=== PATIENT | female | born 1945 | race Caucasian/White ===

== ENCOUNTER 2016-12-18 01:30 | Day surgery (SDC) | payer MEDICARE ==
[~2016-12-18] VITALS: Ht 172.7 cm; Wt 118.8 kg
[~2016-12-18 01:30] MED LIST: BACL20TA PO; CALCIUM 600MG PO; CHOL200025 PO; GABA-500 PO; HYDR-3740 PO; OMEP20CA11 PO; SERT100T9 PO; SPIR25TA3 PO; WARF2.5T82 PO; WARF5TAB7 PO; [UNRECOGNIZED DRUG - OTHER] IM
[2016-12-18] MEDS ORDERED: fentaNYL-PF 50 mCg/mL 2 mL Inj ONE (01:31)
[2016-12-18] MEDS ORDERED: Propofol 10,000 mCg/mL 20 mL Inj ONE (01:31)
[2016-12-18 10:05] VITALS: BP 145/82; PULSE 70; RESP 16; O2SAT 97
--- NOTE | 2016-12-18 10:39 | PCM.HPANE ---
Patient Data Surgeon Admitting Provider: Attending Provider:Talia Kaminski MD Primary Care Physician:Mikayla De La Torre MD Other Provider:Garima Valencia Anesthesia Reason for Visit Pancreatic Cyst Ht/WT & BMI Height (Feet): 5 Height (Inches): 8 Weight (Kilograms): 118.84 Body Mass Index 39.00 Allergies Coded Allergies: Sulfa (Sulfonamide Antibiotics) (Verified Allergy, Severe, "itchy" "headache", 04/23/16) aspartame (Verified Allergy, Severe, 04/23/16) amitriptyline (Verified Adverse Reaction, Mild, GARCIA, vomiting, 12/03/16) oxybutynin (Verified Adverse Reaction, Mild, did not work, 12/03/16) Past Anesthesia History Anesthesia History: Positive for:: Anesthesia Reactions (SLOW TO WAKE UP), Denies:: Abnormal Airway, Difficult Intubation, Fam Anesthesia Reaction, Fam Malignant Hypertherm, Malignant Hyperthermia Diabetes History Hx Diabetes?: No MRSA MRSA: Yes (R BUTTOCKS/10+YRS AGO) Medications Blood Thinner: Coumadin Last Dose Blood Thinner: December 14, 2016 Reported Medications Warfarin Sodium 2.5 Mg Tablet7.5 Mg PO DIRECTED Ref 0 12/17/16 Warfarin Sodium 5 Mg Tablet5 Mg PO DIRECTED 30 Days Ref 0 12/17/16 Spironolactone 25 Mg Swdnrj97 Mg PO DAILY #30 TABLET Ref 0 12/17/16 Gabapentin 100 Mg [id number] Mg PO DAILY Ref 0 06/19/16 Cholecalciferol (Vitamin D3) (Vitamin D3)2,000 Unit Tablet2,000 Unit PO DAILY 05/12/15 Hydrocodone-Acetaminophen 10-325 mg 1 Each Tablet1-2 Tablet PO Q6H PRN For Pain Ref 0 05/12/15 Sertraline HCl (Sertraline)100 Mg Xrtqeg271 Mg PO DAILY 30 Days Ref 0 11/14/14 [Calcium 600MG] No Conflict Check1 Po Daily 10/21/11 [B 12 inj] No Conflict Check1,000 Mcg IM monthly Ref 0 05/10/09 Discontinued Reported Medications Omeprazole 20 Mg Capsule.dr20 Mg PO PRN Ref 0 04/23/16 Baclofen 20 Mg Lttytu13 Mg PO BID Ref 0 05/12/15 Warfarin Sodium 5 Mg Tablet5 Mg PO DAILY 30 Days Ref 0 5MG SAT, SUN, T,W,F; 2.5MG M, TH 05/15/15 History History of ENT Problems?: No HEENT History: Positive for:: Hearing Problem ([place] mild) Denies:: Abnormal Airway Difficult Intubation Dysphagia Denture Type: None Teeth Condition: Within Normal Limits Hx of Heart Problems?: Yes Cardiovascular History: Positive for:: Edema (pedal) Denies:: AICD Atrial Fibrillation Cardiac Surgery Chest Pain Congestive Heart Failure Heart Murmur Hypertension Irregular Heartbeat Pacemaker Thrombophlebitis Valvular Heart Disease Other Cardiac History: hx of blood clot in left leg Hx of Respiratory Problem?: No Respiratory History: Denies:: Asthma COPD Chest Surgery Cough Dyspnea Hemoptysis Pneumonia Tuberculosis Use of C-PAP Machine Hx Neurologic Problems?: Yes Neurological History: Positive for:: Multiple Sclerosis Denies:: Alzheimer's Disease CVA Dementia Dizziness Headaches Parkinson's Disease Seizures Hx of GI Problems?: Yes Hx of Problems?: Yes Genitourinary History: Positive for:: Urinary Tract Infection Denies:: HX of Hemodialysis Kidney Stones HX of Peritoneal Dialysis: No Female Hx: Denies:: Currently Endometriosis Pelvic Inflammatory Problems with Breasts? Hx Musculoskeletal Problems?: Yes Musculoskeletal History: Denies:: Back Injury Joint Replacement Musculoskeletal Trauma Hx of Psycho/Social Problems?: Yes Psycho Social History: Positive for:: Anxiety Hx Depression Denies:: Suicide Attempt Hx Surgeries?: Yes (L BR CA, CARPUL TUNNEL, CATARACTS, R KNEE ARTHROSCOPY) Hx Any Other Health Problems?: Yes Other History: Positive for:: Cancer (left breast cancer surgery 12 years ago) Hospitalization Denies:: Endocrine Disease Thyroid Disease History Blood Transfusions: Denies:: Blood Transfusions Hx Diabetes: No Hx Alcohol Use: NoHx Substance Use: No Smoking Status: Never Smoker Have You Smoked inLast 12 mo: No Stop/Bang Treated for Sleep Apnea?: Yes Do You Have a CPAP Machine?: Yes Risk Assessment Category Category 1A: Patient has history of documented sleep apnea, and HAS NOT received any narcotic, sedative or anesthesia administration during this stay. Category 1B: Patient has history of documented sleep apnea, and HAS received any narcotic , sedative or anesthesia administration during this stay Category 2: Patient has SUSPECTED Obstructive Sleep Apnea, and HAS received any narcotic , sedative or anesthesia administration during this stay. Category 3: Patient has SUSPECTED Obstructive Sleep Apnea and HAS NOT received narcotic, sedative or anesthesia administration during this stay. Category 4: Outpatient in Procedural Areas with known sleep apnea or who screen positive for High Risk via the STOP/BANG questionnaire. Exam Exam Vital Signs Vital Signs Date Time Temp Pulse Resp B/P Pulse Ox O2 Delivery O2 Flow Rate FiO2 12/18/16 10:05 70 16 145/82 97 Room Air General Appearance: Alert, Oriented X3, Cooperative, No Acute Distress HEENT/AIRWAY: MP 3 Lungs: Clear to Auscultation Heart: Exam Unremarkable Plan Impression Patient chart reviewed, patient interviewed and anesthestic plan with risks, benefits, and alternatives discussed, and informed consent obtained. ASA Physical Status: ASA3 Severe Disease Anesthetic Plan: MAC Bene/Risks/Altern/Consents: Yes HP Complete Prior to Induction: Yes Campbell Melvin MD December 18, 2016 10:39
[2016-12-18] MEDS: Lactated Ringer's 1,000 ML IV ONE ×2 (11:26→11:58)
[2016-12-18 12:03] VITALS: BP 157/98; PULSE 87; RESP 16; O2SAT 95
[2016-12-18 12:13] VITALS: BP 163/92; PULSE 82; RESP 16; O2SAT 96
--- NOTE | 2016-12-18 12:21 | PCM.ANEP1 ---
Post Anesthesia Phase 1 PACU Phase 1 Assessment Vital Signs Vital Signs Date Time Temp Pulse Resp B/P Pulse Ox O2 Delivery O2 Flow Rate FiO2 12/18/16 10:05 70 16 145/82 97 Room Air Anesthetic Administered: MAC Level of Alertness: Awake, talking MAHONEY's with Equal Strength: Yes Pain: No Nausea or Vomiting: No Cardiovascular Function and Hy: Yes Oxygen Delivery: Room Air Lungs: Clear to Auscultation Dermatome Level: Full Sensation Complications: No Campbell Melvin MD December 18, 2016 12:21
--- NOTE | 2016-12-18 16:09 | ENDO ---
[address] [address] ENDOSCOPY PROCEDURE PATIENT: LIZZETTE ZAMBRANO : 1945 MR#: [id number] ADMIT: 12/18/2016 JOB ID: [id number] DATE: 12/18/2016 PROCEDURE PERFORMED: EUS. INDICATIONS: A patient with a pancreatic cyst in the tail and body that were seen on prior MRI. The patient had undergone an EUS with FNA back in April of 2016. The lesion in the tail was aspirated and CEA was approximately 12,000 suggestive of mucinous cyst. The patient was then referred to [facility] and then subsequently a referral was placed for her to meet with a pancreaticobiliary surgeon at [facility] to discuss possible options for treatment. The patient, however, had other medical issues going on and, therefore, she never followed up with [facility]. It was recommended she have a repeat EUS done in six months to assess the cystic lesions. Please see anesthesia report for details regarding ASA classification, Mallampati score and medications. INSTRUMENT USED: [id number] linear echoendoscope. PROCEDURE DETAILS: After informed consent was obtained, the patient was brought into the GI suite, where she was placed on oxygen via nasal cannula and monitored with continuous pulse oximeter, telemetry and blood pressure monitoring. A time-out was performed. Then, she was placed in a left lateral decubitus position. A bite block was placed. Medications were then administered for sedation. The linear echo endoscope was then introduced through the bite block and advanced without difficulty to the second portion of the duodenum. Echo endoscopic findings demonstrated the followin. In the tail of the pancreas, we did appreciate what appeared to be a cyst measuring approximately 10 mm x 7.7 mm, almost the same size as prior to aspiration back in April. Again this did not appear to be communicating with the main pancreatic duct. There appeared to be a nodule in the cyst. FNA was not performed or aspiration performed as the cyst had been aspirated in the past. 2. In the body of the pancreas, there was a 3 mm x 3.4 mm well circumscribed hypoechoic lesion consistent with a cyst. The remainder of the pancreas otherwise appeared unremarkable. The pancreatic duct appeared to be normal in course and caliber. 3. The common bile duct appeared to be normal in course and caliber. The visualized portions of the left lobe were unremarkable. 4. Flow was seen in the portal vein, splenic vein and splenic artery. 5. The celiac axis appeared unremarkable. 6. Visualized portions of the spleen and left adrenal gland appeared unremarkable. IMPRESSION: 1. Cyst in the tail of the pancreas with mural nodule. 2. Small cyst in the pancreatic body. RECOMMENDATIONS: 1. Followup with [facility]. 2. Followup in GI clinic following her appointment with [facility]. COMPLICATIONS: None. ESTIMATED BLOOD LOSS: 0. MTDD
== END 2016-12-18 23:59 | disposition home or self-care (01) ==
LOC: END 01:30
PROVIDERS: ATTEND Internal Medicine Gastroenterology
DX: K86.2 Cyst of pancreas (principal); I82.409 Acute embolism and thrombosis of unspecified deep veins of unspecified lower extremity; D68.61 Antiphospholipid syndrome; I83.019 Varicose veins of right lower extremity with ulcer of unspecified site; F32.9 Major depressive disorder, single episode, unspecified; G35 Multiple sclerosis; G47.33 Obstructive sleep apnea (adult) (pediatric); M19.90 Unspecified osteoarthritis, unspecified site; G25.81 Restless legs syndrome; M48.06 Spinal stenosis, lumbar region; Z85.3 Personal history of malignant neoplasm of breast; Z79.01 Long term (current) use of anticoagulants; Z86.010 Personal history of colon polyps
CPT/HCPCS: 43237; J3010; J7120

== ENCOUNTER 2017-01-20 07:41 | Inpatient (IN) | payer MEDICARE ==
[2017-01-20] VITALS (13 sets, daily range): BP systolic 130–180; BP diastolic 69–103; PULSE 87–114; RESP 16–24; O2SAT 82–95
[~2017-01-20] VITALS: Ht 172.7 cm; Wt 130.0 kg
[~2017-01-20 07:41] MED LIST changes: -BACL20TA PO; -OMEP20CA11 PO
--- NOTE | 2017-01-20 07:41 | ED.REPORT ---
HPI-Trauma Minor / Fall Date of Service Jan 20, 2017 ED Provider: Renita Oreilly MD The pt is a 71 y/o female w/ a hx of multiple sclerosis, HTN, breast cancer, osteoarthritis, and depression presenting to the ED via EMS due to a ground level fall. She was trying to sit in her wheelchair which then slid out from under her. Her R leg was twisted to the side during the fall and is severely numb although the pt reports it always being numb due to her MS. The pain is primarily on the lateral side of her R leg just superior to her knee. The pt also experienced a bowel movement during her fall. She also has a bandage on her R leg due to it "weeping" but it is healing nicely , and it is being taken care of by Home Health. Nursing Notes Stated Complaint: GROUND LEVEL FALL Chief Complaint: RLE trauma Nursing Notes Reviewed: Yes Allergies: Coded Allergies: Sulfa (Sulfonamide Antibiotics) (Verified Allergy, Severe, "itchy" "headache", 01/20/17) aspartame (Verified Allergy, Severe, 04/23/16) amitriptyline (Verified Adverse Reaction, Mild, GARCIA, vomiting, 12/03/16) oxybutynin (Verified Adverse Reaction, Mild, did not work, 12/03/16) Scheduled ([B 12 inj]) 1,000 MCG IM monthly ([Calcium 600MG]) 1 PO DAILY Cholecalciferol (Vitamin D3) (Vitamin D3) 2,000 Unit Tablet 2,000 UNIT PO DAILY Gabapentin (Gabapentin) 100 Mg Capsule 100 MG PO DAILY Sertraline HCl (Sertraline) 100 Mg Tablet 150 MG PO DAILY Spironolactone (Spironolactone) 25 Mg Tablet 25 MG PO DAILY Warfarin Sodium (Warfarin Sodium) 5 Mg Tablet 5 MG PO DIRECTED Warfarin Sodium (Warfarin Sodium) 2.5 Mg Tablet 7.5 MG PO DIRECTED Scheduled PRN Hydrocodone-Acetaminophen 10-325 mg (Hydrocodone-Acetaminophen 10-325 mg) 1 Each Tablet 1-2 TABLET PO Q6H PRN PRN For Pain General Time Seen by MD: 07:41 Chief Complaint Fall Hx Obtained From: Patient Arrived By: Ambulance Onset Occurred: Just prior to arrival Symptom Duration: Since onset Recent Healthcare: No recent hospitalization, Recent doctor visit Similar Sx Previous: No Past Medical History Past Medical History Sleep apnea UTI Nocturia Arthritis Depression HTN Anxiety Left breast cancer Clotting problems (hypercoagulable) MRSA on R buttock Past Surgical History Left breast cancer surgery Carpal tunnel Cataracts R knee arthroscopy Smoking History Never Smoker Social History Other Social History: Good social support Ambulatory Status Wheelchair Review of Systems Musculoskeletal: Reports: Extremity pain (R leg ), Extremity swelling (Bilat lower extremities ) Complete sys rev & neg: except as marked. Physical Exam Initial Vital Signs Vital Signs (First) Date Time Temp Pulse Resp B/P Pulse Ox O2 Delivery O2 Flow Rate FiO2 01/20/17 07:48 36.9 87 16 150/90 93 Room Air Initial VS: Reviewed General/Constitutional: Awake, Alert Neck: Atraumatic, Supple, Full range of motion Head / Eyes: Atraumatic, Normocephalic ENT: Atraumatic, Airway patent Respiratory / Chest: Atraumatic, Breath sounds NL, Breath sounds = bilat, No respiratory distress, No rales, No rhonchi, No wheezing Cardiovascular: Heart rate NL, Regular rhythm, Heart sounds NL Abdomen: Atraumatic, Soft, Non-tender Upper Extremity / MS: Atraumatic, No deformity, Vascular intact Lower Extremity / Pelvis / MS: Vascular intact Right Thigh: Positive: Deformity femur distal Never neurologically intact due to MS Nicely healing wound on R anterior zarate Right Foot: Positive: Neuro deficit present (due to MS ) Left Foot: Positive: Neuro deficit present (due to MS ) Blood on L 3rd toe but no significant injury Toes are a deep purple Neurologic: Oriented X3, Speech NL Psychiatric: Affect NL, Mood NL Interpretation & Diagnostics Lab Results Interpretation Result Diagram: 01/20/17 0939 01/20/17 0939 Test 01/20/17 08:41 01/20/17 09:32 01/20/17 09:39 Hold Urine Received (Received) Urine Color Yellow (YELLOW) Urine Appearance Hazy (CLEAR,HAZY) Urine pH 5.5 (5.0-8.0) Urine Specific Bow 1.020 (1.003-1.035) Urine Protein Negativemg/dL (NEG,TRACE) Urine Glucose (UA) Negativemg/dL (NEGATIVE) Urine Ketones Negativemg/dL (NEGATIVE) Urine Occult Blood Small (NEGATIVE) Urine Nitrite Positive (NEGATIVE) Urine Bilirubin Negative (NEGATIVE) Urine Urobilinogen Normalmg/dL (NORMAL) Urine Leukocyte Esterase Negative (NEGATIVE) Urine RBC 0-2/hpf (0-2) Urine WBC 0-5/hpf (0-5) Urine Epithelial Cells Occasional/hpf (NONE-MOD) Urine Crystals None seen (NONE SEEN) Urine Bacteria Many/hpf (NONE-FEW) Urine Hyaline Casts None/lpf (NONE) Urine Granular Casts None seen (NONE SEEN) Urine Waxy Casts None seen (NONE SEEN) Urine Red Blood Cell Casts None seen (NONE SEEN) Urine White Blood Cell Casts None seen (NONE SEEN) Urine Mucus None seen (None Seen) Urine Trichomonas None seen (NONE SEEN) Urine Yeast None (NONE SEEN) Urinalysis Comment None Urine Culture Reflexed Indicated White Blood Count 7.9th/mm3 (3.8-10.1) Red Blood Count 4.79mil/mm3 (3.90-5.20) Hemoglobin 13.9g/dL (12.0-15.6) Hematocrit 42.5% (35.0-46.0) Mean Corpuscular Volume 88.7fL (81-100) Mean Corpuscular Hemoglobin 29.0pg (27.0-35.0) Mean Corpuscular Hemoglobin Concent 32.7% (32.0-37.0) Red Cell Distribution Width 14.5% (12.3-15.4) Platelet Count 400bil/L (150-400) Neutrophils (%) (Auto) 75.8% (40-74) Lymphocytes (%) (Auto) 12.6% (14-46) Monocytes (%) (Auto) 9.3% (4-12) Eosinophils (%) (Auto) 1.9% (0-5) Basophils (%) (Auto) 0.1% (0-3) Sodium Level 140mEq/L (134-144) Potassium Level 4.8mEq/L (3.5-5.2) Chloride Level 104mEq/L (97-108) Carbon Dioxide Level 23mmol/L (18-29) Blood Urea Nitrogen 26mg/dL (8-27) Creatinine 0.65mg/dL (0.57-1.00) Estimat Glomerular Filtration Rate 129mL/min (>59) Glucose Level 128mg/dL (60-99) Calcium Level 9.4mg/dL (8.5-10.1) Total Bilirubin 0.3mg/dL (0.0-1.2) Aspartate Amino Transf (AST/SGOT) 25U/L (0-50) Alanine Aminotransferase (ALT/SGPT) 21U/L (0-32) Alkaline Phosphatase 73U/L (25-165) Total Protein 7.1g/dL (6.4-8.4) Albumin 4.0g/dL (3.4-5.0) Hold [place] Top Tube Received (Received) ECG Interpretation ECG Interpretation: Rate 88 Normal sinus rhythm Probable left atrial enlargement Inferolateral infarct, old No ischemia Time: 08:24 Interpreted by: ED physician X-Ray Chest Interpretation Chest Xray Interpretation: IMPRESSION: No acute cardiopulmonary disease. Dictated by: Josiah Rausch M.D. on 01/20/2017 at 9:38 Approved by: Josiah Rausch M.D. on 01/20/2017 at 9:39 View: Portable, 1 view Interpretation / Wet Read by: Interpret - Radiologist X-Ray Interpretation Xray Interpretation: IMPRESSION: Comminuted distal femoral metadiaphyseal fracture with overriding fracture fragments and lateral angulation. Dictated by: Josiah Rausch M.D. on 01/20/2017 at 9:40 Approved by: Josiah Rausch M.D. on 01/20/2017 at 9:44 X-Ray Ordered: Femur right Interpretation / Wet Read by: Interpret - Radiologist Xray Interpretation: IMPRESSION: No fracture or dislocation. Dictated by: Josiah Rausch M.D. on 01/20/2017 at 9:40 Approved by: Josiah Rausch M.D. on 01/20/2017 at 9:40 X-Ray Ordered: Pelvis Interpretation / Wet Read by: Interpret - Radiologist Xray Interpretation: IMPRESSION: 1. No fracture in tibia or fibula. 2. Distal femoral fracture (please see separate report for 2-view right femur x-ray). 3. Degenerative disease in right knee. 4. Suboptimal visualization of the right tibiotalar joint. If there is pain/tenderness, 3-view ankle x-ray may be helpful. Dictated by: Josiah Rausch M.D. on 01/20/2017 at 9:44 Approved by: Josiah Rausch M.D. on 01/20/2017 at 9:49 X-Ray Ordered: Tibia fibula right Interpretation / Wet Read by: Interpret - Radiologist Re-Eval/Medical Decision Source of Hx: Old records Re-Evaluation/Progress : Time of Eval: 09:44 Re-Evaluation/Progress Note: Rechecked pt. Discussed radiology results. Consultation #1: Referral / Consult Name: Cristina Victor MD Consulted With: Hospitalist Call Returned at: 10:08 Chemical Processing Technician: Will see patient, Agrees with eval, Agrees with plan, Accepts admit Consultation #2: Referral / Consult Name: Tommy Santana MD Consulted With: Surgeon Call Returned at: 10:10 Chemical Processing Technician: Will see patient Note: Discussed pt case and plan to do a distal femoral plate. Counseled Regarding: Diagnosis, Lab results, Need for follow-up, Need for admission Discharge & Departure Impression: Primary Impression: Fracture of distal femur Encounter type: initial encounter Fracture type: closed Fracture morphology : unspecified fracture morphology Laterality: right Qualified Code: S72.401A - Unspecified fracture of lower end of right femur, initial encounter for closed fracture Additional Impression: Multiple sclerosis Disposition: ADMITTED TO HOSPITAL Discharge Condition All VS Reviewed: Yes Condition: Stable Referrals: Mikayla De La Torre MD (PCP) Scribe Attestation Portions of this note were transcribed by Semaj Franks. I, Dr. Oreilly personally performed the history, physical exam and medical decision-making; I reviewed and confirmed the accuracy of the information in the transcribed note. Signed by : Candy More, 01/20/17 and 0810. copies to: Mikayla De La Torre MD, Shawna L MD Jan 20, 2017 07:41 Semaj Franks Jan 20, 2017 08:05
[2017-01-20] MEDS ORDERED: Ondansetron 2 mg/mL 2 mL Inj IVPUSH PRN ×3 (08:00→17:50)
[2017-01-20] MEDS ORDERED: HYDROmorphone 1 mg/mL Inj IVPUSH ONE (08:00)
[2017-01-20] MEDS: HYDROmorphone 0.5 mg/0.5 mL iSecure Syringe IVPUSH PRN ×2 (08:55→09:40)
[2017-01-20] MEDS ORDERED: Ondansetron 2 mg/mL 2 mL Inj ONE (09:37)
[2017-01-20] MEDS ORDERED: Propofol 10,000 mCg/mL 20 mL Inj ONE (09:37)
--- NOTE | 2017-01-20 09:41 | DRSVH ---
PROCEDURE: X-RAY CHEST ONE VIEW, PORTABLE ([id number]) INDICATIONS: pre-op TECHNIQUE: One view of the chest was acquired. COMPARISON: [facility], CT, CT CHEST ABD W CON, 03/15/2016, 9:09. FINDINGS: Surgical changes and devices: None. Lungs and pleura: Shallow inspiration causes vascular crowding. No pleural effusions or pneumothorax . Lungs are clear. Mediastinum: Mediastinal contours appear normal. Heart size is normal. Bones and chest wall: No suspicious bony lesions. Overlying soft tissues appear unremarkable. IMPRESSION: No acute cardiopulmonary disease. Dictated by: Josiah Rausch M.D. on 01/20/2017 at 9:38 Approved by: Josiah Rausch M.D. on 01/20/2017 at 9:39
--- NOTE | 2017-01-20 09:42 | DRSVH ---
PROCEDURE: X-RAY PELVIS, ONE OR TWO VIEWS ([id number]) INDICATIONS: RIGHT LEG PAIN, GROUND LEVEL FALL TECHNIQUE: 1 view(s) of the pelvis acquired. COMPARISON: [facility], CR, XR TIBIA FIBULA 2VW RT, 01/20/2017, 9:01. [facility], CR, XR FEMUR 2VW RT, 01/20/2017, 9:01. FINDINGS: Bones: No fractures or dislocations. No suspicious bony lesions. Degenerative changes in the lower lumbar spine. Soft tissues: Visualized bowel gas pattern is normal. No suspicious soft tissue calcifications. IMPRESSION: No fracture or dislocation. Dictated by: Josiah Rausch M.D. on 01/20/2017 at 9:40 Approved by: Josiah Rausch M.D. on 01/20/2017 at 9:40
--- NOTE | 2017-01-20 09:46 | DRSVH ---
PROCEDURE: X-RAY RIGHT FEMUR, TWO VIEWS ([id number]) INDICATIONS: RIGHT LEG PAIN, GROUND LEVEL FALL TECHNIQUE: 2 views of the femur were acquired. COMPARISON: [facility], , XR TIBIA FIBULA 2VW RT, 01/20/2017, 9:01. [facility], CR, FEMUR 2VW (RT), 04/25/2011, 13:58. FINDINGS: Bones: There is a comminuted fracture in the distal femoral metadiaphyseal with impaction and overrid ing fracture fragments, as well as 20 lateral angulation. Soft tissues: No suspicious soft tissue calcifications or masses. IMPRESSION: Comminuted distal femoral metadiaphyseal fracture with overriding fracture fragments and lateral angulation. Dictated by: Josiah Rausch M.D. on 01/20/2017 at 9:40 Approved by: Josiah Rausch M.D. on 01/20/2017 at 9:44
[2017-01-20 09:47] LABS: BASOPHILS % (AUTO) 0.1 % (0-3); EOSINOPHILS % (AUTO) 1.9 % (0-5); MONOCYTES % (AUTO) 9.3 % (4-12); Mean Corpuscular Volume 88.7 fL (81-100); NEUTROPHILS % (AUTO) 75.8 % (40-74); Platelet Count 400 bil/L (150-400)
[2017-01-20 09:49] LABS: APPEARANCE,URINE HAZY (CLEAR,HAZY); COLOR,URINE YELLOW (YELLOW); OCCULT BLOOD,URINE SMALL (NEGATIVE); PH,URINE 5.5 (5.0-8.0); UROBILINOGEN,URINE NORMAL (NORMAL)
--- NOTE | 2017-01-20 09:51 | DRSVH ---
PROCEDURE: X-RAY RIGHT TIBIA/FIBULA, TWO VIEWS ([id number]) INDICATIONS: RIGHT LEG PAIN, GROUND LEVEL FALL TECHNIQUE: 2 views of the tibia and fibula were acquired. COMPARISON: [facility], CR, XR FEMUR 2VW RT, 01/20/2017, 9:01. FINDINGS: Bones: No fractures or dislocations. No suspicious bony lesions. There is moderate severe joint de generation. Distal femoral fracture is noted. The tibiotalar joint is not well profiled. Soft tissues: No suspicious soft tissue calcifications or masses. IMPRESSION: 1. No fracture in tibia or fibula. 2. Distal femoral fracture (please see separate report for 2-view right femur x-ray). 3. Degenerative disease in right knee. 4. Suboptimal visualization of the right tibiotalar joint. If there is pain/tenderness, 3-view ankle x-ray may be helpful. Dictated by: Josiah Rausch M.D. on 01/20/2017 at 9:44 Approved by: Josiah Rausch M.D. on 01/20/2017 at 9:49
[2017-01-20] MEDS ORDERED: HYDROmorphone 0.5 mg/0.5 mL iSecure Syringe IVPUSH ONE ×2 (11:05→12:51)
[2017-01-20] MEDS ORDERED: fentaNYL-PF 50 mCg/mL 2 mL Inj ONE (11:13)
[2017-01-20] MEDS ORDERED: Remifentanil 1 mg/3 mL Inj ONE (11:13)
--- NOTE | 2017-01-20 11:40 | NUR ---
Arrived on Unit Patient arrived on floor from ER in stable condition. Patient unable to transfer from stretcher to bed. Patient transferred from stretcher to bed with 3-person and slider board assist. A&Ox3. VSS. Denies nausea. Reported 8/10 leg pain. 0.5mg IVP Dilaudid given. Per MD, wound dressing on right lower extremities removed. Admit completed. Patient orientated to call light, bed, and visiting hours. Call light and tray table within reach. Will continue to monitor patient hourly.
[2017-01-20] MEDS ORDERED: HYDROmorphone 0.5 mg/0.5 mL iSecure Syringe IVPUSH PRN (13:10)
[2017-01-20] MEDS ORDERED: DIME240C2 PO (13:22)
[2017-01-20] MEDS ORDERED: LACT1CAP73 PO (13:30)
[2017-01-20] MEDS ORDERED: LISI10TA PO (13:32)
[2017-01-20] MEDS ORDERED: NITR25CA2 PO (13:34)
--- NOTE | 2017-01-20 13:56 | PCM.HPMED ---
Subjective Date of Service Jan 20, 2017 Primary Provider: Admitting Physician: Cristina Victor MD Primary Care Physician: Mikayla De La Torre MD Attending Physician: Cristina Victor MD Chief Complaint: Right distal femur fracture History of Present Illness: She was getting up to the bathroom this morning, as she was sitting down she mostly missed the toilet bowl she hit the edge of it and then fell to the floor and somehow tangled her legs. When she went down she noted her foot was off at an unusual angle but the pain was not severe due to chronic loss of sensation in her leg due to her multiple sclerosis. She was brought to the emergency department. She denies any preceding lightheadedness or any loss of consciousness. No chest pain, palpitations, or shortness of breath. Review of Systems: She does have frequent urinary tract infections and had a urine sample sent for testing 5 days ago but has not yet heard back on results. Blood pressure has been more elevated than usual the past 3 weeks, says the highest was 170/96, she was started on lisinopril 2 days ago She does have chronic pain in her legs and right hip some of which she says is "sciatica" and there has been some increase in his chronic pain recently She does have chronic constipation alternating with diarrhea, no recent change, no blood noted in the stool She has swelling in her feet right much more prominent than the left which is been present at least 2 months. She says her physician feels this is due to her decreased mobility and she has less mobility in the right leg than left, she tends to drag the right leg. Denies any history of CHF Review of systems is otherwise unremarkable Allergies Coded Allergies: Sulfa (Sulfonamide Antibiotics) (Verified Allergy, Severe, "itchy" "headache", 01/20/17) aspartame (Verified Allergy, Severe, 04/23/16) amitriptyline (Verified Adverse Reaction, Mild, GARCIA, vomiting, 12/03/16) oxybutynin (Verified Adverse Reaction, Mild, did not work, 12/03/16) Home Medications Sertraline 150 mg each bedtime Gabapentin 100 mg at bedtime Nitrofurantoin 50 mg each bedtime Warfarin 5 mg daily Tecfidera 5 mg every 12 hours Vicodin 10-325 one to 2 tablets as needed Vitamin B-12 injection Vitamin D 2000 units daily Calcium 600 mg daily Probiotics Spironolactone 50 mg in the morning when her legs are swollen Lisinopril 10 mg daily just started 2 days ago PMH 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, presented with left lower extremity DVT, on lifelong anticoagulation Multiple sclerosis Amyloidosis AA Pancreatic cystic lesion, needle aspiration with no evidence of malignancy Left breast cancer 10-15 years ago, she says removed with the needle biopsy, treated with reloxifen and now tecfidera Sleep apnea which she uses CPAP Bladder incontinence MRSA small abscess of the buttock Frequent urinary tract infections Surgical History Carpal tunnel release Eye surgery Arthroscopic surgery of the left knee for torn meniscus Family History Father related to CHF, had implanted defibrillator, lots of diabetes on his side of the family Mother of pneumonia felt to be a complication of her multiple sclerosis and had previously had endometrial cancer Several aunts and uncles with cancer Social History Hx Alcohol Use: No Hx Substance Use: No Hx Tobacco Use: No Smoking Status: Never Smoker Exam Vital Signs Vital Sign - Last Date Time Temp Pulse Resp B/P Pulse Ox O2 Delivery O2 Flow Rate FiO2 01/20/17 11:52 36.7 104 17 134/81 Nasal Cannula 3.00 94 01/20/17 09:40 95 Exam General: Alert and oriented, no acute distress HEENT: Unremarkable Neck: Thick, no apparent JVD, carotids 1-2+ Heart: Regular Lungs: Clear anteriorly and laterally Abdomen: Soft, non-tender Extremities: Feet and ankles appear puffy especially on the right which has trace to 1+ pitting edema right lower leg has two small shallow ulcers anteriorly and two slightly larger (1-2 cm) shallow ulcerations posteriorly, no sig surrounding erythema Neuro: Hand tool lapper hand strong and equal, able to lift the left leg off the bed, right leg not tested due to fracture Lab and Diagnostics Result Diagram: 01/20/1793801/20/17938 X-Rays, CTs and MRIs Date of Service: 01/20/17 0800 PROCEDURE: X-RAY RIGHT FEMUR, TWO VIEWS ([id number]) INDICATIONS: RIGHT LEG PAIN, GROUND LEVEL FALL TECHNIQUE: 2 views of the femur were acquired. COMPARISON: [facility], CR, XR TIBIA FIBULA 2VW RT, 01/20/2017, 9: 01. [facility], CR, FEMUR 2VW (RT), 04/25/2011, 13:58. FINDINGS: Bones: There is a comminuted fracture in the distal femoral metadiaphyseal with impaction and overriding fracture fragments, as well as 20 lateral angulation. Soft tissues: No suspicious soft tissue calcifications or masses. IMPRESSION: Comminuted distal femoral metadiaphyseal fracture with overriding fracture fragments and lateral angulation. Dictated by: Josiah Rausch M.D. on 01/20/2017 at 9:40 Approved by: Josiah Rausch M.D. on 01/20/2017 at 9:44 12-lead ECG NSR, LAD, incomplete RBBB, no acute ischemic changes Assessment & Plan # Distal right femur fracture -- To have surgery later this afternoon # Freq UTI's -- UA nitrite positive but only 0-5 WBC -- Will await urine culture results and only treat (antibiotic) if positive -- Continue her nitrofurantion suppression dose # Chronic wounds right lower leg, shallow ulcerations with no definite infection -- wound care nurse eval # Multiple sclerosis -- Will complicate rehab, begin physical therapy following surgery -- Continue her usual medications # History of LLE DVT (per oncology hypercoagulable state secondary to an elevated anti-Cardiolipin IgA antibody) -- on lifelong anticoagulation, resume warfarin post op as soon as okay with ortho -- check INR, if low may need other anticoag until warfarin therapeutic again # Chronic Hypertension -- Continue her usual medications # Hx Breast Cancer -- Continue Cristina Alexandre MD Jan 20, 2017 13:56
[2017-01-20] MEDS ORDERED: Vancomycin Inj 2,000 MG in 0.9% Sodium Chloride 500 ML IV SCH (14:00)
[2017-01-20] MEDS ORDERED: CeFAZolin 2 Gm/50 mL D5W IV Premix IV SCH (14:00)
--- NOTE | 2017-01-20 14:30 | NUR ---
Social Work: Initial Assessment D: EMR reviewed. Pt is a 71 y/o female admitted for distal femur fx, MS per H&P. COCO met with pt and friend Charlotte at bedside to conduct initial assessment. Pt was alert and oriented x3. SW explained role and wrote phone number on white board. Pt's insurance is Medicare and AARP Supplemental. Pt's PCP is Mikayla De La Torre MD. Pt gave verbal consent to contact Son/DPOA Cezar Vaz ([phone]) for discharge planning. Pt has completed DPOA/advanced directive ppw and SW encouraged pt to provide a copy to the hospital. Pt has no hx of a SNF. Pt has hx and is currently open with [facility] RN OT 3x/week. Pt has does not have LTC insurance or VA benefits. Pt is independent with most ADLs but needs assistance with chores and meal prep. Pt uses a wheelchair at baseline and owns a CPAP machine and Ankur. Pt does not own or use any other DME. Pt does not drive. Pt is independent at baseline. Pt lives alone in a single-story home with a ramp to enter in [place]. Pt's son will provide transport home via wheelchair van when pt is medically stable for discharge. COCO received T/C from [facility] confirming pt is open with RN OT 3x/week. Cathy requested access. COCO confirmed that we will provide access once MD has placed resume HH order. COCO requested MD order to resume HH RN OT 3x/week via [facility]. COCO will continue to follow for needs. A: Pt who is wheelchair bound at baseline. P: Pt confirmed her son will provide transport home via wheelchair van when pt is medically stable for discharge. COCO received T/C from [facility] confirming pt is open with RN OT 3x/week. Cathy requested access. COCO confirmed that we will provide access once MD has placed resume HH order. COCO requested MD order to resume HH RN OT 3x/week via [facility]. COCO will continue to follow for needs. [place] Carpenter Addendum: 01/20/17 at 1436 by ИВАН BONDS Amended: Links added.
--- NOTE | 2017-01-20 14:42 | NUR ---
COCO received MD order to resume [facility]AGOBERTO. COCO provided access for [facility].
--- NOTE | 2017-01-20 14:55 | PCM.HPANE ---
Patient Data Surgeon Admitting Provider:Cristina Victor MD Attending Provider:Cristina Victor MD Primary Care Physician:Mikayla De La Torre MD Other Provider: Reason for Visit Distal Femur Fx,Ms DISTAL FEMUR FX,MS Ht/WT & BMI Height (Feet): 5 Height (Inches): 8.00 Weight (Kilograms): 127.100 Body Mass Index 42.47 Allergies Coded Allergies: Sulfa (Sulfonamide Antibiotics) (Verified Allergy, Severe, "itchy" "headache", 01/20/17) aspartame (Verified Allergy, Severe, 04/23/16) amitriptyline (Verified Adverse Reaction, Mild, GARCIA, vomiting, 12/03/16) oxybutynin (Verified Adverse Reaction, Mild, did not work, 12/03/16) Past Anesthesia History Anesthesia History: Positive for:: Anesthesia Reactions, Denies:: Abnormal Airway, Difficult Intubation, Fam Anesthesia Reaction, Fam Malignant Hypertherm, Malignant Hyperthermia Diabetes History Hx Diabetes?: No MRSA MRSA: Yes Medications Blood Thinner: Coumadin Reported Medications Calcium Carbonate (Calcium)600 Mg [id number] Mg PO DAILY 01/20/17 Cyanocobalamin (Cyanocobalamin Injection)1,000 Mcg/1 Ml Vial1,000 Mcg IM Monthly 01/20/17 Nitrofurantoin Macrocrystal (Nitrofurantoin)25 Mg [id number] Mg PO HS #90 take for 3 months. Started on 11/12/16. Take until 02/11/17 01/20/17 Lisinopril 10 Mg [id number] Mg PO HS #30 01/20/17 Lactobacillus Combo No.11 (Probiotic)1 Each Cap.[email or web address] Each PO DAILY 01/20/17 Dimethyl Fumarate (Tecfidera)240 Mg Faivxlc902 Mg PO 9am and 9pm #60 01/20/17 Warfarin Sodium 5 Mg Tablet5 Mg PO DAILY 30 Days Ref 0 12/17/16 Spironolactone 25 Mg Xmbdsu80 Mg PO AM when legs swollen #30 TABLET Ref 0 12/17/16 Gabapentin 100 Mg [id number] Mg PO DAILY Ref 0 06/19/16 Cholecalciferol (Vitamin D3) (Vitamin D3)2,000 Unit Tablet2,000 Unit PO DAILY 05/12/15 Hydrocodone-Acetaminophen 10-325 mg 1 Each Tablet1-2 Tablet PO Q6H PRN For Pain Ref 0 05/12/15 Sertraline HCl (Sertraline)100 Mg Fydipu605 Mg PO HS 30 Days Ref 0 11/14/14 Discontinued Reported Medications Warfarin Sodium 2.5 Mg Tablet7.5 Mg PO DIRECTED Ref 0 12/17/16 [Calcium 600MG] No Conflict Check1 Tab PO DAILY 10/21/11 [B 12 inj] No Conflict Check1,000 Mcg IM monthly Ref 0 05/10/09 History History of ENT Problems?: No HEENT History: Positive for:: Hearing Problem (NEWHALEN mild) Denies:: Abnormal Airway Difficult Intubation Dysphagia Denture Type: None Teeth Condition: Within Normal Limits Hx of Heart Problems?: Yes Cardiovascular History: Positive for:: Congestive Heart Failure Edema (Pedal) Hypertension Denies:: AICD Atrial Fibrillation Cardiac Surgery Chest Pain Heart Murmur Irregular Heartbeat Pacemaker Thrombophlebitis Valvular Heart Disease Hx of Respiratory Problem?: No Respiratory History: Denies:: Asthma COPD Chest Surgery Cough Dyspnea Hemoptysis Pneumonia Tuberculosis Use of C-PAP Machine Hx Neurologic Problems?: Yes Neurological History: Positive for:: Multiple Sclerosis Denies:: Alzheimer's Disease CVA Dementia Dizziness Headaches Parkinson's Disease Seizures Other Neurological Pertinent: MS Hx of GI Problems?: Yes Hx of Problems?: Yes Genitourinary History: Positive for:: Urinary Tract Infection Denies:: HX of Hemodialysis Kidney Stones HX of Peritoneal Dialysis: No Female Hx: Denies:: Currently Endometriosis Pelvic Inflammatory Problems with Breasts? Hx Musculoskeletal Problems?: Yes Musculoskeletal History: Denies:: Back Injury Joint Replacement Musculoskeletal Trauma Hx of Psycho/Social Problems?: Yes Psycho Social History: Positive for:: Anxiety Hx Depression Denies:: Suicide Attempt Hx Surgeries?: Yes Hx Any Other Health Problems?: Yes Other History: Positive for:: Cancer (Breast ) Hospitalization Denies:: Endocrine Disease Thyroid Disease History Blood Transfusions: Positive for:: Accept Blood Products? Denies:: Blood Transfuse Reaction Blood Transfusions Hx Diabetes: No Hx Alcohol Use: NoHx Substance Use: No Smoking Status: Never Smoker Have You Smoked inLast 12 mo: No Stop/Bang Treated for Sleep Apnea?: Yes Do You Have a CPAP Machine?: Yes S-Snoring: Do You Snore Loudly: Yes T-Tired: feel tired, fatigued: Yes O-Obsered: Observed not breath: Yes P-Blood Pressure: treated: Yes B- Body Mass Index > 35 kg/m2: Yes A- Age over 50: Yes N- Neck Large Circumference: Yes G- Gender Male: No NANCY Total Score: 7 NANCY Risk Assessment: High Risk, =/>3 Yes NANCY Category 2: Yes Risk Assessment Category Category 1A: Patient has history of documented sleep apnea, and HAS NOT received any narcotic, sedative or anesthesia administration during this stay. Category 1B: Patient has history of documented sleep apnea, and HAS received any narcotic , sedative or anesthesia administration during this stay Category 2: Patient has SUSPECTED Obstructive Sleep Apnea, and HAS received any narcotic , sedative or anesthesia administration during this stay. Category 3: Patient has SUSPECTED Obstructive Sleep Apnea and HAS NOT received narcotic, sedative or anesthesia administration during this stay. Category 4: Outpatient in Procedural Areas with known sleep apnea or who screen positive for High Risk via the STOP/BANG questionnaire. Exam Exam Vital Signs Vital Signs Date Time Temp Pulse Resp B/P Pulse Ox O2 Delivery O2 Flow Rate FiO2 01/20/17 11:52 36.7 104 17 134/81 Nasal Cannula 3.00 94 01/20/17 09:40 95 17 139/79 95 Room Air 01/20/17 08:22 88 22 135/77 82 Room Air 01/20/17 08:05 87 94 Room Air 01/20/17 07:48 36.9 87 16 150/90 93 Room Air General Appearance: Alert HEENT/AIRWAY: MP 2 Lungs: Clear to Auscultation Heart: Exam Unremarkable Meds/Labs/Diagnostics Admission Meds Current Medications Hydromorphone HCl (Dilaudid Inj) 1 mg Q15MIN ONCE IVPUSH Last administered on 01/20/17 08:17; Start 01/20/17 at 08:00; Stop 01/20/17 at 08:04; Status DC Hydromorphone HCl (Dilaudid Inj) 0.5 mg ONCE ONCE IVPUSH Last administered on 01/20/17 12:54; Start 01/20/17 at 12:51; Stop 01/20/17 at 12:52; Status DC Labs Test 01/20/17 08:41 01/20/17 09:32 01/20/17 09:39 01/20/17 14:35 Hold Urine Received (Received) Urine Color Yellow (YELLOW) Urine Appearance Hazy (CLEAR,HAZY) Urine pH 5.5 (5.0-8.0) Urine Specific [place] 1.020 (1.003-1.035) Urine Protein Negativemg/dL (NEG,TRACE) Urine Glucose (UA) Negativemg/dL (NEGATIVE) Urine Ketones Negativemg/dL (NEGATIVE) Urine Occult Blood Small (NEGATIVE) Urine Nitrite Positive (NEGATIVE) Urine Bilirubin Negative (NEGATIVE) Urine Urobilinogen Normalmg/dL (NORMAL) Urine Leukocyte Esterase Negative (NEGATIVE) Urine RBC 0-2/hpf (0-2) Urine WBC 0-5/hpf (0-5) Urine Epithelial Cells Occasional/hpf (NONE-MOD) Urine Crystals None seen (NONE SEEN) Urine Bacteria Many/hpf (NONE-FEW) Urine Hyaline Casts None/lpf (NONE) Urine Granular Casts None seen (NONE SEEN) Urine Waxy Casts None seen (NONE SEEN) Urine Red Blood Cell Casts None seen (NONE SEEN) Urine White Blood Cell Casts None seen (NONE SEEN) Urine Mucus None seen (None Seen) Urine Trichomonas None seen (NONE SEEN) Urine Yeast None (NONE SEEN) Urinalysis Comment None Urine Culture Reflexed Indicated White Blood Count 7.9th/mm3 (3.8-10.1) Red Blood Count 4.79mil/mm3 (3.90-5.20) Hemoglobin 13.9g/dL (12.0-15.6) Hematocrit 42.5% (35.0-46.0) Mean Corpuscular Volume 88.7fL (81-100) Mean Corpuscular Hemoglobin 29.0pg (27.0-35.0) Mean Corpuscular Hemoglobin Concent 32.7% (32.0-37.0) Red Cell Distribution Width 14.5% (12.3-15.4) Platelet Count 400bil/L (150-400) Neutrophils (%) (Auto) 75.8% (40-74) Lymphocytes (%) (Auto) 12.6% (14-46) Monocytes (%) (Auto) 9.3% (4-12) Eosinophils (%) (Auto) 1.9% (0-5) Basophils (%) (Auto) 0.1% (0-3) Sodium Level 140mEq/L (134-144) Potassium Level 4.8mEq/L (3.5-5.2) Chloride Level 104mEq/L (97-108) Carbon Dioxide Level 23mmol/L (18-29) Blood Urea Nitrogen 26mg/dL (8-27) Creatinine 0.65mg/dL (0.57-1.00) Estimat Glomerular Filtration Rate 129mL/min (>59) Glucose Level 128mg/dL (60-99) Calcium Level 9.4mg/dL (8.5-10.1) Total Bilirubin 0.3mg/dL (0.0-1.2) Aspartate Amino Transf (AST/SGOT) 25U/L (0-50) Alanine Aminotransferase (ALT/SGPT) 21U/L (0-32) Alkaline Phosphatase 73U/L (25-165) Total Protein 7.1g/dL (6.4-8.4) Albumin 4.0g/dL (3.4-5.0) Hold [place] Top Tube Received (Received) Plan Impression Patient chart reviewed, patient interviewed and anesthestic plan with risks, benefits, and alternatives discussed, and informed consent obtained. NPO per Anesth. Guidelines: Yes ASA Physical Status: ASA3 Severe Disease Anesthetic Support Modalities: Summit Scope Anesthetic Plan: GA Bene/Risks/Altern/Consents: Yes HP Complete Prior to Induction: Yes Other discussed elevated INR with dr mesa. Given patient's history of hypercoagulation and orthopedic fracture, we decided an INR of1.8 was optimal prior to surgery. Patient and I discussed MS and anesthesia. Patient has history of slow emergence. Ej Patterson MD Jan 20, 2017 14:55
--- NOTE | 2017-01-20 15:00 | NUR ---
Off Unit Patient off floor to PACU via bed.
[2017-01-20 15:09] LABS: INR 1.89 ratio
[2017-01-20] MEDS ORDERED: Lactated Ringer's 1,000 ML IV ONE (16:00)
[2017-01-20] MEDS ORDERED: Bupivacaine-MPF 0.5% W/EPI 30 mL Inj INFILTRATE ONE (16:40)
[2017-01-20] MEDS ORDERED: CALC600T12 PO (17:21)
[2017-01-20] MEDS ORDERED: CYA1000I IM (17:21)
[2017-01-20] MEDS ORDERED: Lactated Ringer's 1,000 ML IV SCH (17:46)
[2017-01-20] MEDS ORDERED: Lactated Ringer's 500 ML IV PRN (17:46)
[2017-01-20] MEDS ORDERED: fentaNYL-PF 50 mCg/mL 2 mL Inj IVPUSH PRN (17:50)
[2017-01-20] MEDS ORDERED: HYDROmorphone 1 mg/mL Inj IVPUSH PRN (17:50)
[2017-01-20] MEDS ORDERED: Phenylephrine 10,000 mCg/mL Inj IVPUSH PRN (17:50)
[2017-01-20] MEDS ORDERED: EPHEDrine Sulfate 50 mg/mL Inj IVPUSH PRN (17:50)
[2017-01-20] MEDS ORDERED: Dexamethasone 4 mg/mL Inj IVPUSH PRN (17:50)
[2017-01-20] MEDS ORDERED: MetoCLOpramide 5 mg/mL 2 mL Inj IVPUSH PRN (17:50)
--- NOTE | 2017-01-20 18:15 | PCM.ANEP1 ---
Post Anesthesia PACU Phase 1 Assessment Vital Signs TEMP 36.6 SAT 87 HR 104 172/100 RR 12 AWAKE, TALKING, SATS LOW BUT MOVING GOOD AIR. LUNGS SOUND CLEAR. PRE OP SATS ON RA WERE MID 80'S, EXPECT SATS TO IMPROVE WHEN MORE AWAKE. Vital Signs Date Time Temp Pulse Resp B/P Pulse Ox O2 Delivery O2 Flow Rate FiO2 01/20/17 11:52 36.7 104 17 134/81 Nasal Cannula 3.00 94 Anesthetic Administered: GA Level of Alertness: Awake, talking MAHOENY's with Equal Strength: Yes Pain: Yes Pain Scale Score: 0 (0) Nausea or Vomiting: No CV Function & Hydration Stable: Yes Airway Device: Oxygen Delivery: OxyMask Lungs: Clear to Auscultation Dermatome Level: Full Sensation PACU Phase 2 Assessment Complications: No Follow up Care: N/A Patient Instructions Provided: N/A Ej Patterson MD Jan 20, 2017 18:15
--- NOTE | 2017-01-20 18:47 | NUR ---
pt is in OR Addendum: 01/20/17 at 1848 by BHARTI WRAY CNA Amended: Links added.
[2017-01-20] MEDS ORDERED: Albuterol-Ipratropium 3 mL Inhalation Solution NEB ONE (18:50)
--- NOTE | 2017-01-20 19:12 | DRSVH ---
PROCEDURE: X-RAY RIGHT FEMUR, TWO VIEWS ([id number]) INDICATIONS: post op TECHNIQUE: 4 views of the femur were acquired. COMPARISON: None. FINDINGS: Bones: Intraoperative fixation of comminuted distal femoral fracture. There remains a small degree o f overlap of fracture measuring approximately 2 cm. Soft tissues: No suspicious soft tissue calcifications or masses. IMPRESSION: Intraoperative fixation of femoral fracture as above. Dictated by: Erin Guillen M.D. on 01/20/2017 at 19:09 Approved by: Erin Guillen M.D. on 01/20/2017 at 19:10
--- NOTE | 2017-01-20 20:15 | NUR ---
Transferred from PACU received report from CHIEF SPECIALIST LEED Ted Melton. Pt arrived to floor approximately at 1945 with Oxymask on 6L, spo2 92%. Pt closed her eyes during arrival, but easily arousable for voice. pt reported pain tolerable at this time. pt on 6L O2 via oxymask with CPOX on. O2 sat in between 92-94%. VS WNL. Dressing on right thigh/leg C/D/I, lower leg knee brace on. will continue to monitor and provide care.
[2017-01-20] MEDS: oxyCODONE-Acetamin 5-325 mg Tablet PO PRN (21:44)
[2017-01-20] MEDS: Nitrofurantoin Monohyd-Macrocryst 100 mg Capsule PO SCH (21:44)
[2017-01-20] MEDS: DIMETHYL FUMARATE 240 MG PO SCH (21:44)
[2017-01-21] MEDS ORDERED: 0.9% Sodium Chloride 250 ML ONE (00:01)
[2017-01-21] MEDS: HYDROcodone-APAP 10-325 mg PO PRN (00:08)
[2017-01-21] MEDS: CeFAZolin Inj 3 GM in IV Premix 1 EACH IV SCH ×2 (00:08→09:00)
[2017-01-21] MEDS ORDERED: Ondansetron 2 mg/mL 2 mL Inj IVPUSH PRN (01:40)
[2017-01-21] MEDS ORDERED: Alum-Mag Hydrox-Simeth 30 mL Suspension PO PRN (01:40)
--- NOTE | 2017-01-21 01:42 | OP ---
[address] [id number] OPERATIVE REPORT PATIENT: LIZZETTE ZAMBRANO : 1945 MR#: [id number] ADMIT: 01/20/2017 JOB ID: [id number] DATE OF SURGERY: 01/20/2017 PREOPERATIVE DIAGNOSIS(ES): Distal femoral fracture, right leg. POSTOPERATIVE DIAGNOSIS(ES): Distal femoral fracture, right leg. PROCEDURE: 1. Open reduction and internal fixation with intermedullary nail. 2. Two plane C-arm radiographic visualization of the fracture, fracture reduction and implant placement. PROCEDURE: Intramedullary nailing in retrograde fashion with a locked intramedullary nail. SURGEON: Tommy Santana MD DIGESTION OPERATOR: Nahomy Alejandro PA-C. [employer] Insurance Claim Examiner required due to the complexity of the operation. SECOND DIGESTION OPERATOR: Dmitriy Pastor PA-C INDICATIONS: This woman who suffers from MS, fell. This is a nonweightbearing limb. She noted immediate pain and instability in the leg. Treatment options discussed. We elected to proceed with open reduction and internal fixation for leg stability. She understands potential for risks and complication which include but is not limited to, infection, thromboembolic, neurovascular events, as well as a potential for malunion, nonunion, and implant failure. DESCRIPTION OF PROCEDURE: The patient was prepped and draped in usual sterile fashion. She was on the operating room table with a bump placed under the leg. Two plane C-arm was brought into the room to identify the fracture, set appropriate alignment and obtain a closed reduction over an operative triangle. Traction was applied to the limb. An anteromedial approach was made to the knee. A medial arthrotomy which allowed for an appropriate starting point. Guide pin placed across the fracture. Reamed to 14 mm proximal. There was a suggestion of a longitudinal split preoperatively. Care was taken to observe for this intraoperatively, and no splint in the distal femur was noted, either pre-nailing, intra or post nailing. Progressive reaming proximally and then the guide pin placed distally. Traction was held on the limb which allowed for reduction. It was reamed up to the largest nail size which was a 13 mm diameter nail which was 36 mm long. This was placed up the femur using two plane C-arm longitudinal traction to create a good reduction of the fracture. The wounds were irrigated with sterile irrigant following this. A lateral incision was made 1 inch in length for crossed locking screws which were placed under C-arm control for appropriate length and position. Following this, the hole proximally was rounded up and a proximal locking screw was placed through a small anterior incision. Documented position of this locking screw was noted and wounds were closed proximally with nylon 4-0 suture also utilized to close a small wound laterally. Copious irrigation of the arthrotomy site with closure with #2 Quill deep, followed by 2-0 Vicryl, 3-0, and a 4-0 intracuticular stitch. A sterile dressing was applied and the patient was applied in a hinged knee brace locked at 30 degrees. POSTOPERATIVE PLAN: Continuing wound care for the excoriations on her calf which have been chronic in nature. She will be kept absolutely nonweightbearing. It will be critically important that the leg is not lifted by the heel, but supporting the leg behind the knee with for transfers. She will not be allowed to weightbear and transfers until solid fracture healing is noted. At two weeks, the hinged knee brace can be unlocked to start a gentle passive range of motion of the knee with a goal being to achieve near full extension and at least 90 degrees flexion in order to assist in sitting and transfers.
[2017-01-21 01:46] VITALS: BP 147/69; PULSE 109; RESP 20; O2SAT 92
[2017-01-21] MEDS: oxyCODONE-Acetamin 5-325 mg Tablet PO PRN ×3 (01:49→16:05)
--- NOTE | 2017-01-21 04:08 | NUR ---
Pain pt c/o 7-04/13 right hip/leg pain. Administered PRN PO [place] and Percocet. Also applied ice pack,elevated, changed to comfortable position. pt reported pain to tolerable level on rate of /. bilateral feet purple in color. Dressing on right thigh/leg C/D/I, lower leg knee brace on. pt has mild sensation on right foot, capillary refill WNL (<3 SEC.), but no motion. will continue to monitor and provide care.
[2017-01-21 06:17] LABS: INR 2.42 ratio
[2017-01-21 07:26] VITALS: BP 101/60; PULSE 91; RESP 20; O2SAT 95
[2017-01-21] MEDS ORDERED: [UNRECOGNIZED DRUG - OTHER] PO SCH (08:30)
[2017-01-21] MEDS: DIMETHYL FUMARATE 240 MG PO SCH ×2 (09:00→20:19)
--- NOTE | 2017-01-21 09:21 | PCM.PNORTH ---
Subjective Date of Service: Jan 21, 2017 Visit Information: Reason for Visit Distal Femur Fx,Ms Surgery/Surgery Date Post-Op Day # 1 Date of Admission: Jan 20, 2017 at 11:12 Hospital Day # Subjective Patient states she had discomfort throughout the night but is feeling better this morning. She states she is not an ambulator at her baseline. Patient states she is having some numbness in her left lower leg which is her nonoperative leg and she is concerned by this. Postop General: No Shortness of Breath, No Chest Pain Pain Management: PO Objective Exam Objective Patient sitting up in bed Vital Signs and I/O Vital Sign - Last Date Time Temp Pulse Resp B/P Pulse Ox O2 Delivery O2 Flow Rate FiO2 01/21/17 07:26 37.1 91 20 101/60 95 OxyMask 6.00 01/20/17 11:52 94 Intake and Output 01/20/17 01/20/17 01/21/17 Cumulative From/Thru 15:00 23:00 07:00 01/20/17 07:48 - 01/21/17 06:22 Intake Total 1350 ml 84 ml 1434 ml Output Total 750 ml 750 ml Balance 600 ml 84 ml 684 ml Intake Oral 0 ml 0 ml IV Total 1350 ml 84 ml 1434 ml Output Urine Total 600 ml 600 ml Estimated Blood Loss 150 ml 150 ml Lab & Micro Results Laboratory Tests Test 01/20/17 09:32 01/20/17 09:39 01/20/17 14:35 01/21/17 05:33 Urine Color Yellow (YELLOW) Urine Appearance Hazy (CLEAR,HAZY) Urine pH 5.5 (5.0-8.0) Urine Specific [place] 1.020 (1.003-1.035) Urine Protein Negativemg/dL (NEG,TRACE) Urine Glucose (UA) Negativemg/dL (NEGATIVE) Urine Ketones Negativemg/dL (NEGATIVE) Urine Occult Blood Small (NEGATIVE) Urine Nitrite Positive (NEGATIVE) Urine Bilirubin Negative (NEGATIVE) Urine Urobilinogen Normalmg/dL (NORMAL) Urine Leukocyte Esterase Negative (NEGATIVE) Urine RBC 0-2/hpf (0-2) Urine WBC 0-5/hpf (0-5) Urine Epithelial Cells Occasional/hpf (NONE-MOD) Urine Crystals None seen (NONE SEEN) Urine Bacteria Many/hpf (NONE-FEW) Urine Hyaline Casts None/lpf (NONE) Urine Granular Casts None seen (NONE SEEN) Urine Waxy Casts None seen (NONE SEEN) Urine Red Blood Cell Casts None seen (NONE SEEN) Urine White Blood Cell Casts None seen (NONE SEEN) Urine Mucus None seen (None Seen) Urine Trichomonas None seen (NONE SEEN) Urine Yeast None (NONE SEEN) Urinalysis Comment None Urine Culture Reflexed Indicated White Blood Count 7.9th/mm3 (3.8-10.1) Red Blood Count 4.79mil/mm3 (3.90-5.20) Hemoglobin 13.9g/dL (12.0-15.6) Hematocrit 42.5% (35.0-46.0) Mean Corpuscular Volume 88.7fL (81-100) Mean Corpuscular Hemoglobin 29.0pg (27.0-35.0) Mean Corpuscular Hemoglobin Concent 32.7% (32.0-37.0) Red Cell Distribution Width 14.5% (12.3-15.4) Platelet Count 400bil/L (150-400) Neutrophils (%) (Auto) 75.8% (40-74) Lymphocytes (%) (Auto) 12.6% (14-46) Monocytes (%) (Auto) 9.3% (4-12) Eosinophils (%) (Auto) 1.9% (0-5) Basophils (%) (Auto) 0.1% (0-3) Sodium Level 140mEq/L (134-144) Potassium Level 4.8mEq/L (3.5-5.2) Chloride Level 104mEq/L (97-108) Carbon Dioxide Level 23mmol/L (18-29) Blood Urea Nitrogen 26mg/dL (8-27) Creatinine 0.65mg/dL (0.57-1.00) Estimat Glomerular Filtration Rate 129mL/min (>59) Glucose Level 128mg/dL (60-99) Calcium Level 9.4mg/dL (8.5-10.1) Total Bilirubin 0.3mg/dL (0.0-1.2) Aspartate Amino Transf (AST/SGOT) 25U/L (0-50) Alanine Aminotransferase (ALT/SGPT) 21U/L (0-32) Alkaline Phosphatase 73U/L (25-165) Total Protein 7.1g/dL (6.4-8.4) Albumin 4.0g/dL (3.4-5.0) Hold [place] Top Tube Received (Received) Prothrombin Time 20.5sec (8.1-12.5) 26.4sec (8.1-12.5) Prothromb Time International Ratio 1.89ratio 2.42ratio Microbiology 01/20/17 Urine Culture - Preliminary, Resulted Result Diagram: 01/20/17 0939 01/20/17 0939 General Appearance: Alert, Oriented X3, Cooperative, No Acute Distress Extremities: Distal Pulses Palpable, No Compartment Syndrom Noted Postop Sensory Motor: Distal Motor Intact, Movement in Toes, Distal Sensation Intact, NVI Distally SURGICAL WOUND : Wound Location/Description Perioperative dressings clean dry and intact Activity: Activity per PT (Transfer bed to chair, range of motion within limits of brace, strict NWB of RLE) Assessment & Plan Impression POD#1 right femur IM retrograde nail Problems: Plan Weightbearing: Nonweightbearing with right lower extremity - patient is a non- ambulator at baseline and does transfers only at home. DVT prophylaxis: Management per Hospitalist team - suspect Coumadin Physical therapy for transfers and strengthening - It will be critically important that the leg is not lifted by the heel, but supporting the leg behind the knee. At two weeks, the hinged knee brace can be unlocked to start a gentle passive range of motion of the knee with a goal being to achieve near full extension and at least 90 degrees flexion in order to assist in sitting and transfers. Wound care: Perioperative dressings will be changed to an island dressing tomorrow. Patient has wounds on her lower extremity and when dressing is changed tomorrow it may be in patient's best interest to get wound care consulted to assess the wounds and dress appropriately. Analgesia: Oral pain management Discharge plan: Discharge home with vs SNF in 1-2 days. Follow-up plan: In 2 weeks at [facility] with TELLY for wound check and at [address] Santana with x-rays Nahomy Alejandro PA-C Jan 21, 2017 09:21
[2017-01-21 13:03] VITALS: BP 100/65; PULSE 102; RESP 19; O2SAT 90
--- NOTE | 2017-01-21 13:14 | NUR ---
Evaluation completed. Please go to "Notes" then click on "Assessments and Notes" (bottom left corner of screen). Then select appropriate discipline tab on top of screen.
--- NOTE | 2017-01-21 13:26 | PCM.PHAPRO ---
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 * Inr Goal: 2-3 * Concurrent Anticoagulation: none, pt is currently therapeutic * Drug Interactions: sertraline (platelets) * Disease Interactions: none noted * H/H (01/20) 13.9/42.5 Platelets (01/20) 400 * Coagulation Trends: 01/20 Inr 1.89 * 01/21 Inr 2.42 * * Plan: pt did not receive any warfarin on 01/20, the day of surgery. Inr increased today to 2.42. Will resume this evening with a reduced dose of 2.5mg and follow April Maurice [facility] Jan 21, 2017 13:25
--- NOTE | 2017-01-21 14:30 | DRSVH ---
PROCEDURE: X-RAY CHEST ONE VIEW, PORTABLE ([id number]) INDICATIONS: low sats TECHNIQUE: One view of the chest was acquired. COMPARISON: [facility], CR, XR CHEST 1VW (PORTABLE), 01/20/2017, 9:01. FINDINGS: Surgical changes and devices: None. Lungs and pleura: Lung volumes are low there is bronchovascular crowding. Medial bibasilar patchy ai rspace opacities. No pneumothorax. Mediastinum: Mediastinal contours appear normal. Heart size is enlarged. Bones and chest wall: No suspicious bony lesions. Overlying soft tissues appear unremarkable. IMPRESSION: Expiratory chest demonstrating bronchovascular crowding and medial bibasilar airspace opa cities consistent with atelectasis versus developing aspiration or pneumonia. Correlate clinically. Dictated by: Ronald Catalan RRA Interpreted: Estee Mcknight MD on 01/21/2017 at 8:43 Approved by: Estee Mcknight MD, PhD on 01/21/2017 at 14:28
--- NOTE | 2017-01-21 15:44 | NUR ---
Evaluation completed. Please go to "Notes" then click on "Assessments and Notes" (bottom left corner of screen). Then select appropriate discipline tab on top of screen.
--- NOTE | 2017-01-21 16:29 | PCM.PNMED ---
Subjective Date of Service Jan 21, 2017 Subjective Patient feels better today Exam Vital Signs Vital Sign - Last Date Time Temp Pulse Resp B/P Pulse Ox O2 Delivery O2 Flow Rate FiO2 01/21/17 13:03 36.8 102 19 100/65 90 Nasal Cannula 3.00 01/20/17 11:52 94 Intake and Output 01/20/17 01/20/17 01/21/17 Cumulative From/Thru 15:00 23:00 07:00 01/20/17 07:48 - 01/21/17 06:22 Intake Total 1350 ml 84 ml 1434 ml Output Total 750 ml 750 ml Balance 600 ml 84 ml 684 ml Intake Oral 0 ml 0 ml IV Total 1350 ml 84 ml 1434 ml Output Urine Total 600 ml 600 ml Estimated Blood Loss 150 ml 150 ml Exam GENERAL: Alert, not in distress, cooperative HEAD: atraumatic, normocephalic, no bruises. EYES: LILLIAN, EOMI, anicteric, able to fully open and close eyelids SKIN: Skin color normal, turgor normal. No visible rashes or lesions. EAR, NOSE, MOUTH, THROAT: Lips, oral mucosa, tongue gums, oropharynx are moist , pink, no lesions. Ears normal appearance, no lesions. NECK: no jugulovenous distention, No carotid bruit, supple, no enlarged lymph nodes appreciated; ROM normal. RESPIRATORY: Lungs clear to auscultation. Good diaphragmatic excursion. CARDIAC: normal S1 and S2; no rubs, murmurs, or gallops; regular rate and rhythm ABDOMEN: Abdomen soft, non-tender. BS normal. No masses or organomegaly. MUSCULOSKELETAL: ROM full, muscles are not tender EXTREMITIES: no pitting edema in LE, no deformities, clubbing or skin discoloration. NEURO: Alert, oriented X 3, Sensation grossly intact., Cranial nerves II-XII intact PULSES: 2+ radial, 2+ carotid REVIEW OF SYSTEMS: GENERAL: no malaise, no fevers., SEE HPI HEENT: Negative for frequent or significant headaches All other reviewed and negative other than HPI. IVs and Medications Medications Reviewed: Medications were reviewed in detail Lab and Diagnostics Result Diagram: 01/20/17 0939 01/20/17 0939 X-Rays, CTs and MRIs Date of Service: 01/20/17 0800 PROCEDURE: X-RAY RIGHT FEMUR, TWO VIEWS ([id number]) INDICATIONS: RIGHT LEG PAIN, GROUND LEVEL FALL TECHNIQUE: 2 views of the femur were acquired. COMPARISON: [facility], CR, XR TIBIA FIBULA 2VW RT, 01/20/2017, 9: 01. [facility], CR, FEMUR 2VW (RT), 04/25/2011, 13:58. FINDINGS: Bones: There is a comminuted fracture in the distal femoral metadiaphyseal with impaction and overriding fracture fragments, as well as 20 lateral angulation. Soft tissues: No suspicious soft tissue calcifications or masses. IMPRESSION: Comminuted distal femoral metadiaphyseal fracture with overriding fracture fragments and lateral angulation. Dictated by: Josiah Rausch M.D. on 01/20/2017 at 9:40 Approved by: Josiah Rausch M.D. 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 - monitor INR, adjust Warfarin dose HTN - stable - Continue her usual medications Hx Breast Cancer - Continue [employer] Labs, radiology tests and ECG reviewed. Plan of care, medication side effects, home medication, diagnostic procedures and available alternatives were discussed and reviewed with patient. All questions answered. Patient verbalized understanding, approved and agreed to plan of care. Given patient's current condition, I certify, in my opinion inpatient services greater than two midnights are medically necessary for this patient. Please see H&P and MD progress notes for additional information about patient's course of treatment. Pain Evaluation: Adequate Pain Control VTE Mechanical Devices: Intermittant Pneumatic CD Farhad Anderson MD Jan 21, 2017 16:29
[2017-01-21 19:39] VITALS: BP 106/67; PULSE 97; RESP 20; O2SAT 97
[2017-01-21] MEDS: Nitrofurantoin Monohyd-Macrocryst 100 mg Capsule PO SCH (20:19)
[2017-01-22] MEDS: oxyCODONE-Acetamin 5-325 mg Tablet PO PRN ×4 (01:21→16:28)
[2017-01-22 04:52] VITALS: BP 92/57; PULSE 83; RESP 18; O2SAT 91
--- NOTE | 2017-01-22 06:20 | NUR ---
CPAP Ripped off CPAP at 0100, pt confused and thought it was morning and didnt need it, yet easily reoriented. O2 Sats in high 80s. Changed CPAP from 3L to 4.5L to get sats back up. Later turned down to 3L to maintain low-mid 90s. K0fhkmg and frequent rounding continues.
[2017-01-22 06:30] LABS: INR 1.89 ratio
--- NOTE | 2017-01-22 09:16 | PCM.PNORTH ---
Subjective Date of Service: Jan 22, 2017 Visit Information: Reason for Visit Distal Femur Fx,Ms Surgery/Surgery Date right femur IM nailing 01/20/2017 Post-Op Day # 2 Date of Admission: Jan 20, 2017 at 11:12 Hospital Day # Subjective Patient reports she is not having much pain when at rest. She has pain whenever moving the leg. Patient was having home health wound care nurse dressing the wounds on the back of her right calf 3 times a week prior to this injury. Patient does not have much sensation in the right leg due to the neuropathy from her MS Postop General: No Shortness of Breath, No Chest Pain Pain Management: PO Objective Exam Objective Patient is seen in bed Vital Signs and I/O Vital Sign - Last Date Time Temp Pulse Resp B/P Pulse Ox O2 Delivery O2 Flow Rate FiO2 01/22/17 04:52 36.6 83 18 92/57 91 CPAP 5.00 01/20/17 11:52 94 Intake and Output 01/21/17 01/21/17 01/22/17 Cumulative From/Thru 15:00 23:00 07:00 01/20/17 07:48 - 01/22/17 06:39 Intake Total 400 ml 1760 ml 400 ml 3994 ml Output Total 550 ml 350 ml 450 ml 2100 ml Balance -150 ml 1410 ml -50 ml 1894 ml Intake Oral 400 ml 1760 ml 400 ml 2560 ml IV Total 1434 ml Output Urine Total 550 ml 350 ml 450 ml 1950 ml Estimated Blood Loss 150 ml # Bowel Movements 0 0 0 Lab & Micro Results Laboratory Tests Test 01/22/17 05:55 Prothrombin Time 20.5sec (8.1-12.5) Prothromb Time International Ratio 1.89ratio Microbiology 01/20/17 Urine Culture - Final, Complete Klebsiella Pneumoniae Result Diagram: 01/20/17 0939 01/20/17 0939 General Appearance: Alert, Oriented X3, Cooperative, No Acute Distress Extremities: Distal Pulses Palpable, No Compartment Syndrom Noted Postop Sensory Motor: Decreased Sensation (chronic lower leg and foot) SURGICAL WOUND : Wound Location/Description Right lower extremity: With the assistance of a nurse, the leg was supported behind the knee at all times. The hinged knee brace is removed. It is locked at 30. The postoperative dressing is removed. Surgical wounds are clean and dry. Steri-Strips are intact over the anterior wound. The side of the knee wound is closed with sutures. There is no signs of infection. At the posterior lower leg over the There are multiple small punctate wounds which are dressed with Xeroform. These are all removed. Surgical wounds were cleansed with hydrogen peroxide and dressed with Island dressing over the anterior wound , Adaptic 2 x 2 gauze and Tegaderm over the lateral wound. The wounds on the calf were dressed with Adaptic, gauze and cast padding. The leg was wrapped with elastic bandage from ankle to above the knee and the hinged knee brace was reapplied. Activity: Activity per PT (Transfer bed to chair, range of motion within limits of brace, strict NWB of RLE) Catheters: None Assessment & Plan Impression POD #2 Right femur retro IM nail Problems: Plan Weightbearing: Nonweightbearing with right lower extremity - patient is a non- ambulator at baseline and does transfers only at home. Long-leg hinged brace locked at 30 DVT prophylaxis: warfarin Physical therapy for transfers and strengthening - It will be critically important that the leg is not lifted by the heel, but supporting the leg behind the knee. At two weeks, the hinged knee brace can be unlocked to start a gentle passive range of motion of the knee with a goal being to achieve near full extension and at least 90 degrees flexion in order to assist in sitting and transfers. Wound care: Surgical wounds are changed to an island dressing today. The wounds on the posterior calf redressed with Adaptic gauze and cast padding. Wound Care Evaluation is ordered Analgesia: Oral pain management Discharge plan: Discharge home with vs SNF in 1-2 days. Follow-up plan: In 2 weeks at [facility] with TELLY for wound check and at [address] Santana with x-rays Pain Management: Calera, Percocet VTE Prophylaxis: Theraputic Anticoag with Warfarin Resuscitation Status: Limited Interventions [place] North[place]enda Talamantes PA-C Jan 22, 2017 09:16
[2017-01-22] MEDS: DIMETHYL FUMARATE 240 MG PO SCH ×2 (09:34→21:38)
[2017-01-22 09:43] VITALS: BP 105/69; PULSE 87; RESP 20; O2SAT 92
--- NOTE | 2017-01-22 11:17 | NUR ---
Gave access and faxed facesheet to [facility] per FACULT[employer]EARCH PHYSICIAN and MD order.
--- NOTE | 2017-01-22 12:57 | PCM.PNMED ---
Subjective Date of Service Jan 22, 2017 Subjective Patient feels weak. She will work with physical therapy and occupational therapy to improve her strength. Patient has multiple sclerosis. She had right femur IM nailing on 01/20/2017 Exam Vital Signs Vital Sign - Last Date Time Temp Pulse Resp B/P Pulse Ox O2 Delivery O2 Flow Rate FiO2 01/22/17 10:47 Supplement Oxygen 01/22/17 09:43 37.0 87 20 105/69 92 3.00 01/20/17 11:52 94 Intake and Output 01/21/17 01/21/17 01/22/17 Cumulative From/Thru 15:00 23:00 07:00 01/20/17 07:48 - 01/22/17 06:39 Intake Total 400 ml 1760 ml 400 ml 3994 ml Output Total 550 ml 350 ml 450 ml 2100 ml Balance -150 ml 1410 ml -50 ml 1894 ml Intake Oral 400 ml 1760 ml 400 ml 2560 ml IV Total 1434 ml Output Urine Total 550 ml 350 ml 450 ml 1950 ml Estimated Blood Loss 150 ml # Bowel Movements 0 0 0 Exam GENERAL: Alert, not in distress HEAD: atraumatic, normocephalic, no bruises. EYES: LILLIAN, EOMI, anicteric SKIN: Skin color normal, turgor normal. No visible rashes or lesions. EAR, NOSE, MOUTH, THROAT: Lips, oral mucosa, tongue are moist, pink, no lesions. NECK: no jugulovenous distention, supple; ROM normal. RESPIRATORY: Lungs clear to auscultation. Good diaphragmatic excursion CARDIAC: normal S1 and S2; no rubs, murmurs, or gallops; regular rhythm ABDOMEN: Abdomen soft, non-tender. BS normal. No masses or organomegaly. MUSCULOSKELETAL: ROM full, muscles are not tender EXTREMITIES: no pitting edema in LE, no deformities, clubbing or skin discoloration. NEURO: Alert, oriented X 3, Cranial nerves II-XII intact, PULSES: 2+ radial, 2+ carotid REVIEW OF SYSTEMS: GENERAL: No weight loss, + malaise, no fevers., SEE HPI HEENT: Negative for frequent or significant headaches, No changes in hearing or vision, no nose bleeds or other nasal problems All other reviewed and negative other than HPI. IVs and Medications Medications Reviewed: Medications were reviewed in detail Lab and Diagnostics Result Diagram: 01/20/17 0939 01/20/17 0939 X-Rays, CTs and MRIs Date of Service: 01/20/17 0800 PROCEDURE: X-RAY RIGHT FEMUR, TWO VIEWS ([id number]) INDICATIONS: RIGHT LEG PAIN, GROUND LEVEL FALL TECHNIQUE: 2 views of the femur were acquired. COMPARISON: [facility], CR, XR TIBIA FIBULA 2VW RT, 01/20/2017, 9: 01. [facility], CR, FEMUR 2VW (RT), 04/25/2011, 13:58. FINDINGS: Bones: There is a comminuted fracture in the distal femoral metadiaphyseal with impaction and overriding fracture fragments, as well as 20 lateral angulation. Soft tissues: No suspicious soft tissue calcifications or masses. IMPRESSION: Comminuted distal femoral metadiaphyseal fracture with overriding fracture fragments and lateral angulation. Dictated by: Josiah Rausch M.D. on 01/20/2017 at 9:40 Approved by: Josiah Rausch M.D. 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 - monitor INR, adjust Warfarin dose HTN - on the lower side - d/c lisinopril Hx Breast Cancer - Continue home meds Labs, radiology tests and ECG reviewed. Plan of care, diagnostic procedures and available alternatives were discussed and reviewed with patient. All questions answered. Patient verbalized understanding, approved and agreed to plan of care. Given patient's current condition, I certify, in my opinion inpatient services greater than two midnights are medically necessary for this patient. Please see H&P and MD progress notes for additional information about patient's course of treatment. VTE Prophylaxis: Theraputic Anticoag with Warfarin VTE Mechanical Devices: Intermittant Pneumatic CD Resuscitation Status: Limited Interventions Viter,Farhad MD Jan 22, 2017 12:57
--- NOTE | 2017-01-22 14:27 | NUR ---
UTI On 01/21/17 pt stated she thought she might have a UTI; she had urinalysis at her Dr's office just before her injury and admission to the hospital. She had not received the results of that testing. Advised pt that a urine sample had been taken when she got to [facility], but culture results were pending. Today, culture showed Klebsiella pneumoniae. Informed pt that her urine was positive for UTI, and that she would likely be discharged with an antibiotic. Sent Cook page to hospitalist for possible order for antibiotic.
--- NOTE | 2017-01-22 14:43 | NUR ---
Social Work: Readiness for Discharge D: EMR reviewed. Pt is a 71 y/o female admitted for distal femur fx, MS per H&P. Pt is not medically ready for discharge, anticipate 1-2 more days. [facility] acknowledges SNF order from . SW met with pt at bedside regarding SNF recommendation. Pt had concerns regarding SNF and SW answered her questions and concerns to stated satisfaction. Pt understands that she will require a high level of assistance at home until she is stronger. Pt is non weightbearing and must have the strength to transfer to wheelchair completely independently without putting weight on her leg. Pt understands that her limited arm strength will prevent this and the risks involved of discharging home from this admission . PT has seen pt but pt was not willing to do any oob activity and d/c recs are unknown at this time. OT evaluation notes pt's weakness in her Right extremity textbook associate, states that pt is minimally functional from an OT perspective and recommending SNF. After discussion regarding these recommendations, pt is agreeable to SNF. SNF CHOICE LIST PROVIDED. [facility] chose [facility] her only choice. T/C to Cezar Vaz ([phone]) regarding discharge planning. SW explained SNF recommendation to Cezar and he is agreeable to this. Referral made to [facility]. T/C from Hetal at [facility] stating that pt is accepted with [facility] to follow. Paperwork in chart. PASRR in folder. SW will continue to follow. A: Pt for whom SNF is medically necessary at this time. P: Pt is agreeable to SNF level of care. [facility] with [facility] to follow. Paperwork in chart. PASRR in folder. SW will continue to follow. Brianna Saucedo, COUNSELING DIRECTOR
[2017-01-22 16:16] VITALS: BP 117/78; PULSE 98; RESP 18; O2SAT 93
[2017-01-22] MEDS ORDERED: cefTRIAXone Inj 2,000 MG in Dextrose 5% Minibag Plus 50 ML IV SCH (16:45)
--- NOTE | 2017-01-22 16:45 | NUR ---
Elevated temp [employer]PER[employer]OR [employer] reported that pt's body temperature was 39.3 at 1615 hrs. Pt also has positive urine culture (Klebsiella pneumoniae). Sent Cook page to hospitalist to relay this information and request antibiotic and PO Tylenol. Physician is entering order for antibiotic now.
[2017-01-22] MEDS: Nitrofurantoin Monohyd-Macrocryst 100 mg Capsule PO SCH (18:13)
[2017-01-22 21:01] VITALS: BP 119/77; PULSE 95; RESP 20; O2SAT 95
[2017-01-22] MEDS: HYDROcodone-APAP 10-325 mg PO PRN (23:15)
[2017-01-23 05:52] VITALS: BP 128/73; PULSE 100; RESP 20; O2SAT 96
[2017-01-23 06:13] LABS: INR 1.66 ratio
[2017-01-23] MEDS: HYDROcodone-APAP 10-325 mg PO PRN ×2 (06:14→14:58)
--- NOTE | 2017-01-23 07:14 | NUR ---
Pain Pt c/o RT leg pain 7/10 and 8/10 after repositioning. Vicodin 10/325mg (2) given x 2 this shift and was effective in reducing pain per Pt. Care ongoing.
[2017-01-23] MEDS: DIMETHYL FUMARATE 240 MG PO SCH (08:55)
[2017-01-23] MEDS ORDERED: HYDR-3740 PO (10:14)
[2017-01-23] MEDS ORDERED: CIPR-231 PO (10:14)
[2017-01-23] MEDS ORDERED: LOV100 SUBQ (10:15)
--- NOTE | 2017-01-23 11:00 | PCM.DIMED ---
Discharge Instructions Date of Service Jan 23, 2017 Dates of Hospitalization Jan 20, 2017 at 11:12 Discharge Diagnosis Discharge Diagnosis Comminuted distal femoral metadiaphyseal fracture secondary to ground level fall s/p Right femur retro IM nail on 01/20 uncomplicated cystitis with Klebsiella Medication Instructions Additional med instructions Please continue to take Ciprofloxacin for 3more days You need Heparin injection for 3days until your INR level reaches above 2 to prevent blood clots forming Please take Percocet 1-2tab for pain control as needed Diet Discharge Diet: No restrictions Activity Discharge Activity: Other (continue PT at SNF) Call your provider Call your provider for: Other Patient Instructions Patient Instructions You were hospitalized with right femur fracture, required surgery. Please follow the instruction from Orthopedic service below Of note, INR 1.66 on 01/23 and LMWH 100mg q12h was given for 3days. Please monitor INR closely to make sure if it's in therapeutic range. Instruction from Orthopedic Service Weightbearing: Nonweightbearing with right lower extremity - patient is a non- ambulator at baseline and does transfers only at home. Long-leg hinged brace locked at 30 DVT prophylaxis: warfarin Physical therapy for transfers and strengthening - It will be critically important that the leg is not lifted by the heel, but supporting the leg behind the knee. At two weeks, the hinged knee brace can be unlocked to start a gentle passive range of motion of the knee with a goal being to achieve near full extension and at least 90 degrees flexion in order to assist in sitting and transfers. Wound care: Surgical wounds are changed to an island dressing today. The wounds on the posterior calf redressed with Adaptic gauze and cast padding. Wound Care Evaluation is ordered Analgesia: Oral pain management Follow-up Provider: Tommy Santana MD Follow-up with PCP in: 2 weeks David Venegas MD Jan 23, 2017 10:52
[2017-01-23 11:31] LABS: BASOPHILS % (AUTO) 0.4 % (0-3); EOSINOPHILS % (AUTO) 4.7 % (0-5); Mean Corpuscular Volume 91.9 fL (81-100); NEUTROPHILS % (AUTO) 67.1 % (40-74); Platelet Count 338 bil/L (150-400)
--- NOTE | 2017-01-23 11:40 | PCM.PNORTH ---
Subjective Date of Service: Jan 23, 2017 Visit Information: Reason for Visit Distal Femur Fx,Ms Surgery/Surgery Date Post-Op Day # Date of Admission: Jan 20, 2017 at 11:12 Hospital Day # Subjective Status post day #3 right femur retro IM nail. Patient is doing well, pain is well controlled. Ready for discharge to SNF. Postop General: No Shortness of Breath, No Chest Pain Pain Management: PO Objective Exam Objective Patient is alert and oriented 3. Answering questions appropriately. Patient is sitting up in the bed and not in acute distress today. Dressing is clean dry and intact, braces intact, well-positioned. Calf is soft and nontender. Sensation is minimal due to MS but pulses intact, patient able to wiggle toes slightly, appropriate for her baseline. Vital Signs and I/O Vital Sign - Last Date Time Temp Pulse Resp B/P Pulse Ox O2 Delivery O2 Flow Rate FiO2 01/23/17 08:30 Supplement Oxygen 01/23/17 05:52 36.8 100 20 128/73 96 3.00 01/20/17 11:52 94 Intake and Output 01/22/17 01/22/17 01/23/17 Cumulative From/Thru 15:00 23:00 07:00 01/20/17 07:48 - 01/23/17 06:51 Intake Total 600 ml 300 ml 4894 ml Output Total 350 ml 350 ml 2800 ml Balance 250 ml -50 ml 2094 ml Intake Oral 600 ml 300 ml 3460 ml IV Total 1434 ml Output Urine Total 350 ml 350 ml 2650 ml Estimated Blood Loss 150 ml # Voids 1 1 2 # Bowel Movements 0 0 Lab & Micro Results Laboratory Tests Test 01/23/17 05:36 Prothrombin Time 17.9sec (8.1-12.5) Prothromb Time International Ratio 1.66ratio Microbiology 01/20/17 Urine Culture - Final, Complete Klebsiella Pneumoniae Result Diagram: 01/20/17 0939 01/20/17 0939 Activity: Activity per PT (Transfer bed to chair, range of motion within limits of brace, strict NWB of RLE) Catheters: None Assessment & Plan Impression Status post day #3 right femur retrograde IM nail. Patient is stable, ready for discharge. Problems: Plan Weightbearing: Nonweightbearing with right lower extremity - patient is a non- ambulator at baseline and does transfers only at home. Long-leg hinged brace locked at 30 DVT prophylaxis: warfarin Physical therapy for transfers and strengthening - It will be critically important that the leg is not lifted by the heel, but supporting the leg behind the knee. At two weeks, the hinged knee brace can be unlocked to start a gentle passive range of motion of the knee with a goal being to achieve near full extension and at least 90 degrees flexion in order to assist in sitting and transfers. Wound care: Surgical wounds are changed to an island dressing today. The wounds on the posterior calf redressed with Adaptic gauze and cast padding. Wound Care Evaluation is ordered Analgesia: Oral pain management Discharge plan: Discharge today to SNF today if appropriate per hospitalists recommendation. Follow-up plan: In 2 weeks at [facility] with TELLY for wound check and at [address] Santana with x-rays VTE Prophylaxis: Theraputic Anticoag with Warfarin Resuscitation Status: Limited Interventions Christopher Hanley PA-C Jan 23, 2017 11:40
--- NOTE | 2017-01-23 11:55 | PCM.PHAPRO ---
Progress WARFARIN DOSING PER PHARMACY Date Jan 21-Jan 22-Jan 23 INR 1.89 2.42 1.89 1.66 INR change 0.53 -0.53 -0.23 Warf Dose 2.5MG 5MG 7.5 Of note: One dose of enoxaparin 100 mg was given Pharmacy will continue to follow Yoselin Vance PharmD Jan 23, 2017 11:55
--- NOTE | 2017-01-23 12:41 | NUR ---
Spoke with Hetal Solares sales and marketing coordinator at [facility] and she is arranging transport for 1430. Updated [employer] Addendum: 01/23/17 at 1406 by DUNIA SINGER CM Faxed orders to [facility] and placed copy in the chart.
--- NOTE | 2017-01-23 14:26 | NUR ---
Social Work- Discharge D: EMR reviewed. Pt is a 71 y/o female admitted for distal femur fx, MS per H&P. Pt is medically ready for discharge. T/C to Hetal at [facility] regarding pt's discharge, Hetal agreeable. SW met with pt in room. Pt is agreeable to discharge to SNF today. UR Specialist created packet and faxed orders. Paperwork in chart. Pt to discharge to [facility] via wheelchair van at 1530 (originally pt was discharging at 1430 but this was pushed back to obtain bariatric wheelchair. [facility] is aware that pt will require cruz lift at arrival. Pt and pt's son updated and agreeable to plan. RN, UC, pt/family, and [facility] all updated and agreeable to plan. A: Pt for whom SNF is medically necessary at this time. P: Pt to discharge to [facility] with [facility] to follow, transport via wheelchair van at 1530. RN, UC, pt/family, and [facility] all updated and agreeable to plan. Brianna Saucedo, ELECT[employer] ENGINEERING TEACHER
[2017-01-23 15:07] VITALS: BP 138/83; PULSE 105; RESP 16; O2SAT 92
--- NOTE | 2017-01-23 15:19 | PCM.DC.MED ---
Discharge Summary Date of Service Jan 23, 2017 Dates of Hospitalization Date of Hospital Admission Jan 20, 2017 at 11:12 Date of Discharge: Jan 23, 2017 Providers: Admitting Physician: Cristina Victor MD Primary Care Physician: Mikayla De La Torre MD Attending Physician: Cristina Victor MD Diagnosis at Time of Discharge Diagnosis at Time of Discharge Comminuted distal femoral metadiaphyseal fracture secondary to ground level fall s/p Right femur retro IM nail on 01/20 uncomplicated cystitis with Klebsiella Consultations Orthopedic surgery Procedures XRay, CTs & MRIs Date of Service: 01/20/17 0800 PROCEDURE: X-RAY RIGHT FEMUR, TWO VIEWS ([id number]) INDICATIONS: RIGHT LEG PAIN, GROUND LEVEL FALL TECHNIQUE: 2 views of the femur were acquired. COMPARISON: [facility], CR, XR TIBIA FIBULA 2VW RT, 01/20/2017, 9: 01. [facility], CR, FEMUR 2VW (RT), 04/25/2011, 13:58. FINDINGS: Bones: There is a comminuted fracture in the distal femoral metadiaphyseal with impaction and overriding fracture fragments, as well as 20 lateral angulation. Soft tissues: No suspicious soft tissue calcifications or masses. IMPRESSION: Comminuted distal femoral metadiaphyseal fracture with overriding fracture fragments and lateral angulation. Dictated by: Josiah Rausch M.D. on 01/20/2017 at 9:40 Approved by: Josiah Rausch M.D. on 01/20/2017 at 9:44 ECG 12 Lead NSR, LAD, incomplete RBBB, no acute ischemic changes Brief History History and physical obtained by on 01/20 She was getting up to the bathroom this morning, as she was sitting down she mostly missed the toilet bowl she hit the edge of it and then fell to the floor and somehow tangled her legs. When she went down she noted her foot was off at an unusual angle but the pain was not severe due to chronic loss of sensation in her leg due to her multiple sclerosis. She was brought to the emergency department. She denies any preceding lightheadedness or any loss of consciousness. No chest pain, palpitations, or shortness of breath. Hospital Course acute dx 1.Comminuted distal femoral metadiaphyseal fracture secondary to ground level fall s/p Right femur retro IM nail on 01/20. Patient did not develop any postoperative complications. Pain was relatively controlled well. Patient was discharged to halfway facility for further physical therapy and stabilization 2. uncomplicated cystitis with Klebsiella, patient was found to have Klebsiella which was sensitive to ciprofloxacin. pt received 2days of Ceftriaxone.Despite possible interaction with Coumadin, 3 days of Cipro was started. 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 pt was started on LMWH 100mg bid to bridge until INR reaches >2 HTN, held lisinopril as bp running low. Hx Breast Cancer, continue home meds Exam Vital Signs (Last) Date Time Temp Pulse Resp B/P Pulse Ox O2 Delivery O2 Flow Rate FiO2 01/23/17 08:30 Supplement Oxygen 01/23/17 05:52 36.8 100 20 128/73 96 3.00 01/20/17 11:52 94 Exam NAD, comfortably laying down on the bed no JVD, MMM, no LAD RRR, nl s1, s2 no mrg CTAB, no w,c S,ND,NT,normoactive BS+ warm, no edema, pulses 2/2 Rt hip tenderness, motor/sensory intact distally Test 01/20/17 08:41 01/20/17 09:32 01/20/17 09:39 01/23/17 05:36 Hold Urine Received (Received) Urine Color Yellow (YELLOW) Urine Appearance Hazy (CLEAR,HAZY) Urine pH 5.5 (5.0-8.0) Urine Specific [place] 1.020 (1.003-1.035) Urine Protein Negativemg/dL (NEG,TRACE) Urine Glucose (UA) Negativemg/dL (NEGATIVE) Urine Ketones Negativemg/dL (NEGATIVE) Urine Occult Blood Small (NEGATIVE) Urine Nitrite Positive (NEGATIVE) Urine Bilirubin Negative (NEGATIVE) Urine Urobilinogen Normalmg/dL (NORMAL) Urine Leukocyte Esterase Negative (NEGATIVE) Urine RBC 0-2/hpf (0-2) Urine WBC 0-5/hpf (0-5) Urine Epithelial Cells Occasional/hpf (NONE-MOD) Urine Crystals None seen (NONE SEEN) Urine Bacteria Many/hpf (NONE-FEW) Urine Hyaline Casts None/lpf (NONE) Urine Granular Casts None seen (NONE SEEN) Urine Waxy Casts None seen (NONE SEEN) Urine Red Blood Cell Casts None seen (NONE SEEN) Urine White Blood Cell Casts None seen (NONE SEEN) Urine Mucus None seen (None Seen) Urine Trichomonas None seen (NONE SEEN) Urine Yeast None (NONE SEEN) Urinalysis Comment None Urine Culture Reflexed Indicated Sodium Level 140mEq/L (134-144) Potassium Level 4.8mEq/L (3.5-5.2) Chloride Level 104mEq/L (97-108) Carbon Dioxide Level 23mmol/L (18-29) Blood Urea Nitrogen 26mg/dL (8-27) Creatinine 0.65mg/dL (0.57-1.00) Estimat Glomerular Filtration Rate 129mL/min (>59) Glucose Level 128mg/dL (60-99) Calcium Level 9.4mg/dL (8.5-10.1) Total Bilirubin 0.3mg/dL (0.0-1.2) Aspartate Amino Transf (AST/SGOT) 25U/L (0-50) Alanine Aminotransferase (ALT/SGPT) 21U/L (0-32) Alkaline Phosphatase 73U/L (25-165) Total Protein 7.1g/dL (6.4-8.4) Albumin 4.0g/dL (3.4-5.0) Hold [place] Top Tube Received (Received) White Blood Count 7.7th/mm3 (3.8-10.1) Red Blood Count 3.96mil/mm3 (3.90-5.20) Hemoglobin 11.5g/dL (12.0-15.6) Hematocrit 36.4% (35.0-46.0) Mean Corpuscular Volume 91.9fL (81-100) Mean Corpuscular Hemoglobin 29.0pg (27.0-35.0) Mean Corpuscular Hemoglobin Concent 31.6% (32.0-37.0) Red Cell Distribution Width 14.4% (12.3-15.4) Platelet Count 338bil/L (150-400) Neutrophils (%) (Auto) 67.1% (40-74) Lymphocytes (%) (Auto) 12.5% (14-46) Monocytes (%) (Auto) 15.0% (4-12) Eosinophils (%) (Auto) 4.7% (0-5) Basophils (%) (Auto) 0.4% (0-3) Prothrombin Time 17.9sec (8.1-12.5) Prothromb Time International Ratio 1.66ratio Discharge Medications Discharge Medications Calcium Carbonate (Calcium) 600 Mg Tablet 600 MG PO DAILY (Reported) Cholecalciferol (Vitamin D3) (Vitamin D3) 2,000 Unit Tablet 2,000 UNIT PO DAILY (Reported) Ciprofloxacin (Cipro) 500 Mg Tablet 500 MG PO BID Prescribed by: DAVID CHRISTIANSON MD Cyanocobalamin (Cyanocobalamin Injection) 1,000 Mcg/1 Ml Vial 1,000 MCG IM Monthly (Reported) Dimethyl Fumarate (Tecfidera) 240 Mg Capsule 240 MG PO 9am and 9pm (Reported) Enoxaparin (Lovenox) 100 Mg/Ml Syringe 100 MG SUBQ Q12 Prescribed by: DAVID CHRISTIANSON MD Gabapentin (Gabapentin) 100 Mg Capsule 100 MG PO DAILY (Reported) Lactobacillus Combo No.11 (Probiotic) 1 Each Cap.sprink 1 EACH PO DAILY ( Reported) Lisinopril (Lisinopril) 10 Mg Tablet 10 MG PO HS (Reported) Nitrofurantoin Macrocrystal (Nitrofurantoin) 25 Mg Capsule 100 MG PO HS ( Reported) take for 3 months. Started on 11/12/16. Take until 02/11/17 Sertraline HCl (Sertraline) 100 Mg Tablet 150 MG PO HS (Reported) Spironolactone (Spironolactone) 25 Mg Tablet 50 MG PO AM when legs swollen ( Reported) Warfarin Sodium (Warfarin Sodium) 5 Mg Tablet 5 MG PO DAILY (Reported) As needed Hydrocodone-Acetaminophen 10-325 mg (Hydrocodone-Acetaminophen 10-325 mg) 1 Each Tablet 1-2 TABLET PO Q6H PRN PRN For Pain Prescribed by: DAVID CHRISTIANSON MD Additional med instructions Please continue to take Ciprofloxacin for 3more days You need Heparin injection for 3days until your INR level reaches above 2 to prevent blood clots forming Please take Percocet 1-2tab for pain control as needed Followup Plan Disposition: [facility] Discharge Diet: No restrictions Discharge Activity: Other (continue PT at SNF) Patient Instructions You were hospitalized with right femur fracture, required surgery. Please follow the instruction from Orthopedic service below Of note, INR 1.66 on 01/23 and LMWH 100mg q12h was given for 3days. Please monitor INR closely to make sure if it's in therapeutic range. Instruction from Orthopedic Service Weightbearing: Nonweightbearing with right lower extremity - patient is a non- ambulator at baseline and does transfers only at home. Long-leg hinged brace locked at 30 DVT prophylaxis: warfarin Physical therapy for transfers and strengthening - It will be critically important that the leg is not lifted by the heel, but supporting the leg behind the knee. At two weeks, the hinged knee brace can be unlocked to start a gentle passive range of motion of the knee with a goal being to achieve near full extension and at least 90 degrees flexion in order to assist in sitting and transfers. Wound care: Surgical wounds are changed to an island dressing today. The wounds on the posterior calf redressed with Adaptic gauze and cast padding. Wound Care Evaluation is ordered Analgesia: Oral pain management Follow-up Provider: Tommy Santana MD Follow-up with PCP in: 2 weeks Time spent 65min David Christiasnon MD Jan 23, 2017 15:03
--- NOTE | 2017-01-23 16:08 | NUR ---
Discharge To [facility] via wheelchair transport. Ankur lift to chair. Report phoned to Maggi at [facility]. All belongings sent with pt, including home medication. IV discontinued intact.
[2017-01-23] MEDS ORDERED: Warfarin 5 MG, Warfarin 2.5 MG PO ONE ×2 (17:00)
== END 2017-01-23 15:38 | DRG 481 ==
LOC: SED 07:41 → OSC 11:12
PROVIDERS: ADMIT Internal Medicine; ATTEND Internal Medicine
PROC: 0QSB36Z Reposition Right Lower Femur with Intramedullary Internal Fixation Device, Percutaneous Approach (ICD-10-PCS; principal; 2017-01-20 15:00)
DX: S72.491A Other fracture of lower end of right femur, initial encounter for closed fracture (principal); D68.61 Antiphospholipid syndrome; L97.219 Non-pressure chronic ulcer of right calf with unspecified severity; G35 Multiple sclerosis; N30.90 Cystitis, unspecified without hematuria; B96.1 Klebsiella pneumoniae [K. pneumoniae] as the cause of diseases classified elsewhere; I10 Essential (primary) hypertension; W18.39XA Other fall on same level, initial encounter; Y92.012 Bathroom of single-family (private) house as the place of occurrence of the external cause; Z86.718 Personal history of other venous thrombosis and embolism; Z79.01 Long term (current) use of anticoagulants; Z85.3 Personal history of malignant neoplasm of breast